=== PATIENT | female | born 2000 | race African-American/Black ===

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

== ENCOUNTER 2021-02-05 15:46 | Outpatient (REF) | payer OTHER, SELFPAY | END 2021-02-05 15:47 | disposition home or self-care (01) | LOC: HO.LAB 15:46 | PROVIDERS: Visit Provider Internal Medicine | DX: Z20.822 Contact with and (suspected) exposure to COVID-19 (principal) | CPT/HCPCS: C9803; U0003; U0005 ==

== ENCOUNTER 2021-12-10 14:57 | Outpatient (REF) | payer OTHER, SELFPAY ==
--- NOTE | ~2021-12-10 | MM_ITS ---
EXAMINATION: MM SCREENING DIGITAL BREAST TOMOSYNTHESIS, BILATERAL CLINICAL INFORMATION: Screening. Asymptomatic. The lifetime risk of breast cancer based on the Tyrer-Cuzick Model is 27.4%. Additional annual screening with breast MRI may be of benefit in women with a score of 20% or greater. COMPARISON: Mammography: None. TECHNIQUE: Digital breast tomosynthesis is performed in both the craniocaudal and mediolateral oblique views along with computer-aided detection (CAD). Synthesized 2D images are generated from the tomosynthesis. FINDINGS: There are scattered areas of fibroglandular density (ACR BI-RADS breast composition Category b). Right breast: No abnormal dominant mass or suspicious grouping of microcalcifications identified. Left breast: About the deep upper outer aspect of the left breast, there is some asymmetric parenchyma, for which spot compression film and ultrasound evaluation is recommended. MM/MM tomosynthesis screening BI IMPRESSION: Asymmetric density deep superior lateral aspect of the left breast for further evaluation. ASSESSMENT: BI-RADS 0: Incomplete - Need Additional Imaging Evaluation RECOMMENDATION: 1. Additional views of the left breast. 2. Targeted ultrasound if warranted after review of the additional views. 3. Radiology department staff will contact the patient for additional imaging. This patient's information was entered into a reminder system with a target due date for their next mammogram.
== END 2021-12-10 14:58 | disposition home or self-care (01) ==
LOC: HO.MAMMO 14:57
PROVIDERS: PCP Pediatrics; Visit Provider Pediatrics
DX: Z12.31 Encounter for screening mammogram for malignant neoplasm of breast (principal)
CPT/HCPCS: 77063; 77067

== ENCOUNTER 2021-12-20 08:55 | Outpatient (REF) | payer OTHER, SELFPAY ==
--- NOTE | ~2021-12-20 | MM_ITS ---
EXAMINATION: MM DIAGNOSTIC DIGITAL BREAST TOMOSYNTHESIS, LEFT CLINICAL INFORMATION: Recall from baseline screening for parenchymal asymmetry upper outer left breast. 21-year-old with family history premenopausal breast cancer in mother diagnosed under age 30. TC score 27%. COMPARISON: Mammography: 12/10/2021 TECHNIQUE: Digital breast tomosynthesis is performed. 2D images are generated from the tomosynthesis. The following views are obtained: Spot CC x2, spot MLO. FINDINGS: There are scattered areas of fibroglandular density (ACR BI-RADS breast composition Category b). Additional views demonstrate fibroglandular tissue in the upper outer quadrant. There is no mass or architectural abnormality. Results are discussed with the patient at time of visit. Continued high risk screening and availability of genetic testing discussed. MM/MM tomosynthesis added views L IMPRESSION: No mammographic evidence of malignancy. ASSESSMENT: BI-RADS 1: Negative RECOMMENDATION: 1. Routine annual mammography screening. 2.. The lifetime risk of breast cancer based on the Tyrer-Cuzick Model is 27%. Additional annual adjunct screening with breast MRI may be of benefit in women with a risk score of 20% or greater. 3. Referral for genetic counseling/testing may also be of benefit. This patient's information was entered into a reminder system with a target due date for their next mammogram.
== END 2021-12-20 08:56 | disposition home or self-care (01) ==
LOC: HO.MAMMO 08:55
PROVIDERS: Visit Provider Pediatrics
DX: R92.8 Other abnormal and inconclusive findings on diagnostic imaging of breast (principal)
CPT/HCPCS: 77061; 77065

== ENCOUNTER 2022-12-26 10:38 | Outpatient (REF) | payer OTHER, SELFPAY ==
--- NOTE | ~2022-12-26 | MM_ITS ---
EXAMINATION: MM SCREENING DIGITAL BREAST TOMOSYNTHESIS, BILATERAL CLINICAL INFORMATION: Screening. Asymptomatic. The lifetime risk of breast cancer based on the Tyrer-Cuzick Model is 41%. Additional annual screening with breast MRI may be of benefit in women with a score of 20% or greater. COMPARISON: Mammography: 12/20/2021 and 12/10/2021 TECHNIQUE: Digital breast tomosynthesis is performed in both the craniocaudal and mediolateral oblique views along with computer-aided detection (CAD). Synthesized 2D images are generated from the tomosynthesis. FINDINGS: The breasts are heterogeneously dense, which may obscure small masses (ACR BI-RADS breast composition Category c). LEFT BREAST: There is a stable parenchymal pattern of the left breast. RIGHT BREAST: Within the anterior aspect of the right breast on craniocaudal projection there is a region of asymmetric density measuring approximately 2.7 x 1.2 cm in size. Spot compression view is recommended. MM/MM tomosynthesis screening BI IMPRESSION: Right breast density for further evaluation ASSESSMENT: BI-RADS 0: Incomplete - Need Additional Imaging Evaluation RECOMMENDATION: 1. Additional views of the right breast. 2. Targeted ultrasound if warranted after review of the additional views. 3. Radiology Department staff will contact the patient for additional imaging.
== END 2022-12-26 10:39 | disposition home or self-care (01) ==
LOC: HO.MAMMO 10:38
PROVIDERS: Visit Provider Pediatrics
DX: Z12.31 Encounter for screening mammogram for malignant neoplasm of breast (principal)
CPT/HCPCS: 77063; 77067

== ENCOUNTER → 2023-01-17 10:51 | Outpatient (BNVA) | payer OTHER, SELFPAY | PROVIDERS: PCP Pediatrics; Visit Provider Surgery | DX: R92.8 Other abnormal and inconclusive findings on diagnostic imaging of breast (principal); Z91.89 Other specified personal risk factors, not elsewhere classified | CPT/HCPCS: 99202 ==

== ENCOUNTER 2023-02-19 13:48 | Outpatient (REF) | payer OTHER, SELFPAY ==
--- NOTE | ~2023-02-19 | MM_ITS ---
EXAMINATION: MM DIAGNOSTIC DIGITAL BREAST TOMOSYNTHESIS, RIGHT CLINICAL INFORMATION: Recall from screening for question of parenchymal asymmetry right anterior breast. 22-year-old with family history premenopausal breast cancer, mother before age 30, maternal aunt. COMPARISON: Mammography: 12/26/2022, 12/20/2021, 12/10/2021 (baseline). TECHNIQUE: Digital breast tomosynthesis is performed. 2D images are generated from the tomosynthesis. The following views are obtained: Spot CC, standard ML. FINDINGS: There are scattered areas of fibroglandular density (ACR BI-RADS breast composition Category b). The additional views show scattered fibroglandular densities similar to prior exam. No developing density or interval mass or architectural abnormality. Results are discussed with the patient at time of visit. Patient has had recent genetic testing, results pending at follow-up appointment. MM/MM tomosynthesis added views R IMPRESSION: No mammographic evidence of malignancy. ASSESSMENT: BI-RADS 1: Negative RECOMMENDATION: -Routine annual mammography screening. -Additional adjunct screening with MR as clinical risk factors warrant. This patient's information was entered into a reminder system with a target due date for their next mammogram.
== END 2023-02-19 13:49 | disposition home or self-care (01) ==
LOC: HO.MAMMO 13:48
PROVIDERS: Visit Provider Surgery
DX: Z91.89 Other specified personal risk factors, not elsewhere classified (principal)
CPT/HCPCS: 77061; 77065

== ENCOUNTER → 2023-02-28 09:19 | Outpatient (BNVA) | payer OTHER, SELFPAY | PROVIDERS: PCP Pediatrics; Visit Provider Surgery | DX: Z91.89 Other specified personal risk factors, not elsewhere classified (principal) | CPT/HCPCS: 99212 ==

== ENCOUNTER 2023-11-18 08:32 | Outpatient (AMB) | payer OTHER, SELFPAY ==
[2023-11-18 09:26] VITALS: BP 118/72; PULSE 82; TEMP 36.6; O2SAT 98; BMI 30.8
--- NOTE | 2023-11-18 09:26 | MHC.OFFWIV ---
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 The patient is unaware of her most recent tetanus immunization does not believe that she was ever tested for tuberculosis. Additionally, the patient needs confirmation of antibodies for varicella and MMR. Patient has no physical complaints at this time. [facility] Family History Maternal Uncle Colon cancer Maternal Aunt Breast cancer, Onset Age: 49 Ovarian cancer Mother Breast cancer, Onset Age: 29 Paternal Grandfather Colon cancer Social History Alcohol intake: never Patient Tobacco Use Status: Never used Tobacco Female Reproductive History Menstrual Age of Menarche: 13 Review of Systems Const All systems reviewed & are unremarkable except as noted in HPI and below Reports no additional complaints Resp Reports no additional complaints GI Reports no additional complaints Reports no additional complaints Musc Reports no additional complaints Neuro Reports no additional complaints Psych Reports no additional complaints Physical Exam Vital Signs: Last Vital Signs Temp 97.8 F 11/18/23 09:26 Pulse 82 11/18/23 09:26 BP 118/72 11/18/23 09:26 Pulse Ox 98 11/18/23 09:26 Oxygen Delivery Method Room Air 11/18/23 09:26 BMI result Body Mass Index 30.8 Const General: cooperative, healthy appearing, comfortable and no acute distress Nutritional Appearance: average body habitus Orientation/consciousness: patient oriented x3 Limitations: no limitations Eyes General: appearance normal, both eyes and all related structures Resp Effort & Inspection: normal respiratory effort, able to speak in complete sentences and no audible wheezes Auscultation: clear to auscultation bilaterally Cardio Rate: regular rate Rhythm: regular rhythm Neuro General: patient oriented x3 Psych Appearance: grossly normal Mental Status: mental status grossly normal Insight: Good insight present (Psych) Judgement: Good judgement present (Psych) Assessment & Plan Assessment & Plan (1) Immunization due: Comment: Last Tdap unknown. Code(s): Z23 - Encounter for immunization Plan: Tdap immunization administered. Plan Titers for MMR, Varicella and T.spot will be initiated. Orders: Orders TDaP Immunization Today Z23 - Encounter for immunization MMR IgG Measles Mumps Rubella Today Varicella IgG Antibody Today Z23 - Encounter for immunization T Spot TB Today Z23 - Encounter for immunization Coding Level of Care Code New Pt Level 3 (09240) Diagnoses Immunization due Z23 Time Spent (min) 20
== END 2023-11-18 10:14 | disposition home or self-care (01) ==
PROVIDERS: PCP Pediatrics; Visit Provider Physician Assistant
DX: Z23 Encounter for immunization (principal)
CPT/HCPCS: 90471; 90715; 99203

== ENCOUNTER 2023-11-18 10:02 | Outpatient (REF) | payer OTHER, SELFPAY ==
[2023-11-20 21:48] LABS: TS Negative Control Passed; TS Panel A 1; TS Panel B 0; TS Positive Control Passed; TSpotTB Negative (Negative)
== END 2023-11-18 10:03 | disposition home or self-care (01) ==
LOC: HO.HMGCLDS 10:02
PROVIDERS: Visit Provider Physician Assistant
DX: Z11.1 Encounter for screening for respiratory tuberculosis (principal)
CPT/HCPCS: 36415; 86481

== ENCOUNTER 2023-11-19 11:17 | Outpatient (REF) | payer OTHER, SELFPAY ==
[2023-11-20 22:54] LABS: Rubella IgG Antibody 6.87 Index; Rubeola IgG (Measles) >300.00 AU/mL
== END 2023-11-19 11:18 | disposition home or self-care (01) ==
LOC: HO.HMGCLDS 11:17
PROVIDERS: Visit Provider Physician Assistant
DX: Z01.84 Encounter for antibody response examination (principal)
CPT/HCPCS: 36415; 86735; 86762; 86765; 86787

== ENCOUNTER 2023-12-04 12:52 | Outpatient (REF) | payer OTHER, SELFPAY ==
--- NOTE | ~2023-12-04 | MR_ITS ---
EXAMINATION: MR BREAST WITHOUT AND WITH CONTRAST, BILATERAL CLINICAL INFORMATION: 23-year-old for high-risk screening prior to 6 model 41%. Maternal breast cancer before age 30 and paternal aunt COMPARISON: Correlation to mammogram 12/26/2022 and 02/19/2023 TECHNIQUE: Imaging was performed with a dedicated breast coil. Prior to the administration of contrast, bilateral axial T1 and bilateral axial T2 weighted sequences were obtained. After the uneventful administration of?9 mL of Gadavist, dynamic contrast-enhanced VIBRANT series through the breasts in the axial plane were performed. Subtracted images were performed and reviewed. A delayed sagittal sequence through both breasts was acquired. Additionally, CAD post-processing, including maximum intensity projections, 3-D reconstructions and kinetic analysis, were performed an independent workstation and reviewed by the interpreting radiologist is a portion of this exam. FINDINGS: The patient's fibroglandular tissue demonstrates minimal background enhancement. LEFT BREAST: No suspicious masslike or non-masslike enhancement. No abnormal skin thickening or nipple retraction. No abnormal architectural distortion. Review of the T2 weighted images demonstrates no fibrocystic changes or dilated ducts. Review of kinetic images reveals no additional findings. RIGHT BREAST: No suspicious masslike or non-masslike enhancement. No abnormal skin thickening or nipple retraction. No abnormal architectural distortion. Review of the T2 weighted images demonstrates no fibrocystic changes or dilated ducts. Review of kinetic images reveals no additional findings. There is no suspicious internal mammary chain or axillary adenopathy. Limited views of the chest and abdomen are unremarkable. MR/MR breast BI wo/w con IMPRESSION: No MR specific evidence of malignancy. ASSESSMENT: LEFT BREAST: BI-RADS 1-Negative RIGHT BREAST: BI-RADS 1-Negative RECOMMENDATIONS: Routine mammographic imaging as per most recent study and MRI as per high-risk protocol.
[2023-12-04] MEDS: gadobutroL 10 ML VIAL IVPUSH (13:58)
== END 2023-12-04 12:53 | disposition home or self-care (01) ==
LOC: HO.MRI 12:52
PROVIDERS: PCP Pediatrics; Visit Provider Surgery
DX: Z91.89 Other specified personal risk factors, not elsewhere classified (principal)
CPT/HCPCS: 77049; A9585

== ENCOUNTER 2023-12-19 07:53 | Outpatient (AMB) | payer OTHER, SELFPAY ==
--- NOTE | 2023-12-19 08:03 | A.OFFPC_ITS ---
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 Is last menstrual period known: Yes Last menstrual period: 12/15/23 Allergies No Known Allergies Allergy (Verified 12/19/23 08:14) Medication List - Last Reconciled 12/19/23 by SHAYE Loving No Known Home Meds Tobacco use date assessed: 12/19/23 Dental Screening Dental Screen Date: 12/19/23 Did you have a dental visit in the last 12 months?: Yes Did you have a dental problem in the last 6 months where you did not have access to dental care?: No Was dental information given to patient?: Patient has dentist HPI HPI Comments History of Present Illness Details Patient is a 23-year-old female who I am meeting for the 1st time. Chantelle campos was seen in our walk-in clinic 3 weeks prior looking for immunizations for TB, T spot, MMR antibody, and varicella antibody. Patient has no significant past medical history. Patient is high risk breast cancer due to early-onset breast cancer for mother. Patient's last mammogram was 1 year prior, will order new mammogram. Patient has been followed by breast center, missed six-month follow-up with breast surgeon. Patient has been educated on the importance of self-breast exams. Patient has been educated to follow up immediately. Denies symptoms at this time Patient states she has second-degree relative with early-onset ovarian cancer. Would like referral to OBGYN, will provide. Patient denies any symptoms at this time [facility] Family History Maternal Uncle Colon cancer Maternal Aunt Breast cancer, Onset Age: 49 Ovarian cancer Mother Breast cancer, Onset Age: 29 Paternal Grandfather Colon cancer Social History Housing: House Alcohol intake: never Patient Tobacco Use Status: Never used Tobacco e-Cigarette/Vaping Use: Never Used Second Hand Smoke Exposure: Yes service: No Current occupational status: employed Current occupation: [employer] Current occupational exposures/hazards: Yes Cognitive needs: No Hearing needs: No Vision needs: No Female Reproductive History Menstrual Age of Menarche: 13 Date of last menstrual period: 12/15/23 Questionnaire PHQ-9 Over the last 2 weeks, how often have you been bothered by any of the following problems? 1. Little interest or pleasure in doing things: not at all 2. Feeling down, depressed, or hopeless: not at all 3. Trouble falling or staying asleep, or sleeping too much: not at all 4. Feeling tired or having little energy: not at all 5. Poor appetite or overeating: several days 6. Feeling bad about yourself - or that you are a failure or have let yourself or your family down: not at all 7. Trouble concentrating on things, such as reading the newspaper or watching television: not at all 8. Moving or speaking so slowly that other people could have noticed. Or the opposite - being so fidgety or restless that you have been moving around a lot more than usual: not at all 9. Thoughts that you would be better off or of hurting yourself in some way: not at all Total score: 1 Depression Screening Interpretation: Negative Depression Screening Done: Yes 60992 - PHQ-9 Billing: Yes Source: Developed by Drs. Segundo Quinones, Chapis Olea, Lalit Collado and colleagues, with an educational adrianna from [employer]. Thrive Questionnaire Date Thrive assessed: 12/19/23 I am a: Patient What is your living situation today?: I have a steady place to live Within the past 12 months, did the food you bought not last and you didn't have the money to get more?: Never true Within the past 12 months, did you worry whether your food would run out before you got money to buy more?: Never true Do you have trouble paying for medicines?: No Do you have trouble getting transportation to medical appointments?: No Do you have trouble paying your heating and electricity bill?: No Do you have trouble taking care of your child, family member or friend?: No Do you have trouble with day-to-day activities such as bathing, preparing meals, shopping, managing finances, etc.?: No Are you currently unemployed and looking for a job?: No Are you interested in more education?: No THRIVE Score: 0 AUDIT C Alcohol Use Questionnaire (AUDIT-C) 1. How often do you have a drink containing alcohol?: 2-4 times a month 2. How many drinks containing alcohol do you have on a typical day when you are drinking?: 1 or 2 3. How often do you have six or more drinks on one occasion?: Never Total Score: 2 CLIFTON-7 AMB Questionnaire CLIFTON-7 Date CLIFTON - 7 assessed: 12/19/23 Feeling nervous, anxious, or on edge: 0 = Not at all Not being able to stop or control worryin = Not at all Worrying too much about different things: 0 = Not at all Trouble relaxin = Not at all Being so restless that it is hard to sit still: 0 = Not at all Becoming easily annoyed or irritable: 0 = Not at all Feeling afraid as if something awful might happen: 0 = Not at all Total CLIFTON-7 score (0-4 normal; 5-9 mild; 10-14 moderate; 15-21 severe): 0 Source: Developed by Drs. Segundo Quinones, Chapis Olea, Lalit Collado and colleagues, with an educational adrianna from [employer]. CLIFTON-7 Assessment Billing CLIFTON-7 Assessment Tool: CLIFTON-7 Assessment 35179 Review of Systems Const Details: Constitutional : No Weight loss, No Fever, No Chills, No Fatigue, No Malaise ENT/Mouth : No sore throat, No Rhinorrhea Eyes: No Eye Pain, No Swelling, No Redness Cardiovascular : No Chest Pain, No SOB, No Dyspnea on Exertion, No Orthopnea, No Edema, No Palpitations Respiratory : No Cough, No Sputum, No Wheezing Gastrointestinal : No Nausea, No Vomiting, No Diarrhea, No Constipation, No abdominal Pain, No Hematochezia, No Melena Genitourinary : No Dysuria, No Urinary Frequency, No Hematuria, Musculoskeletal : No joint pain, No Myalgias, No Joint Swelling Skin : No Skin Lesions, No rash Neuro : No Weakness, No Numbness, No Dizziness, No Headache Psych : No Anxiety/Panic, No Depression Heme/Lymph: No Bruising, No Bleeding,No Lymphadenopathy Endocrine : No Polyuria, No Polydipsia All other systems reviewed and are negative Physical exam (Primary Care) Care Plan Goal for BP management: Vital signs reviewed stable. Tobacco/Smoking Status: Tobacco use Status Patient Tobacco Use Status Never used Tobacco 12/19/23 08:04 Depression Screening Interpretation: Negative Const Other: Appearance: Alert.? Oriented X3.? No acute distress.? Head: Normocephalic, atraumatic, no step-offs or deformities Neck: Normal inspection.? Neck supple.? CVS: Normal heart rate and rhythm.? Pulses normal.? Respiratory: No respiratory distress.? Breath sounds normal.? Neuro: Oriented X 3.? No motor deficit.? No sensory deficit. CN 2-12 intact Assessment and Plan Assessment & Plan (1) At high risk for breast cancer: Comment: Patient had mammogram 1 year prior. Patient missed 6 months recommended follow- up with breast surgeon. Patient has been educated she needs to make that appointment and follow-up as soon as she can. Code(s): Z91.89 - Other specified personal risk factors, not elsewhere classified Plan: Due for mammogram will order. Plan Take your medications as prescribed. If you were prescribed antibiotics today, it is important that you take your medication to their entirety, do not skip any doses, do not finish them early. Follow-up with your primary care provider this week. Return to the emergency department with new or worsening symptoms. Such as fevers, chills, chest pain, shortness of breath, nausea, vomiting, dizziness, headache, vision changes, lethargy In case of emergency call 911 Orders: Orders Complete Blood Count Auto Diff Today Z13.0 - Encounter for screening for diseases of the blood and blood-forming organs and certain disorders involving the immune mechanism Lipid Panel Today Z13.220 - Encounter for screening for lipoid disorders TSH reflex Free T4 Today Z13.29 - Encounter for screening for other suspected endocrine disorder UA CC w/rflx Micro + Cult Today Z13.89 - Encounter for screening for other disorder Vitamin D 25-OH (D2 and D3) Today Z13.21 - Encounter for screening for nutritional disorder Vitamin B6 Today Z13.21 - Encounter for screening for nutritional disorder Vitamin B12 Today Z13.21 - Encounter for screening for nutritional disorder MM tomosynthesis screening BI Today Z12.31 - Encounter for screening mammogram for malignant neoplasm of breast, Z91.89 - Other specified personal risk factors, not elsewhere classified Comprehensive Met. Panel Today Z91.89 - Other specified personal risk factors, not elsewhere classified Referrals ENTERTAINMENT USHER Referral Z12.4 - Encounter for screening for malignant neoplasm of cervix, Z80.41 - Family history of malignant neoplasm of ovary Coding Level of Care Code Est Pt Level 3 (07496) Diagnoses At high risk for breast cancer Z91.89 Additional Codes CLIFTON-7 Assessment Billing - CLIFTON-7 Assessment Tool: CLIFTON-7 Assessment 88191 ([id number]) Time Spent (min) 21
[2023-12-19 08:04] VITALS: BP 126/72; PULSE 79; O2SAT 98; BMI 31.3
== END 2023-12-19 11:07 | disposition home or self-care (01) ==
PROVIDERS: PCP Pediatrics; Visit Provider Nurse Practitioner Primary Care
DX: Z91.89 Other specified personal risk factors, not elsewhere classified (principal)
CPT/HCPCS: 99213

== ENCOUNTER 2023-12-19 08:30 | Outpatient (REF) | payer OTHER, SELFPAY ==
[2023-12-19 10:26] LABS: MANUAL DIFF FLAG NO
[2023-12-19 10:50] LABS: Basophils Percent Auto 0.3 % (0-2); Eosinophils Percent Auto 0.6 % (0-4); Hematocrit 39.7 % (37.0-47.0); Hemoglobin 12.7 g/dl (12.0-16.0); Imm Gran Abs Auto 0.02 X10*3/uL (0.00-0.03); Imm Gran Pct Auto 0.3 % (0.0-0.4); Lymphocytes Absolute Auto 1.6 X10*3/uL (1.2-4.9); Lymphocytes Percent Auto 23.8 % (20-40); Mean Corpuscular Volume 84.5 fL (80.0-98.0); Mean Platelet Volume 10.3 fL (9.4-12.3); Monocytes Absolute Auto 0.6 X10*3/uL (0.1-1.2); Neutrophils Absolute Auto 4.6 x10*3/uL (2.0-8.3); Platelet Count 285 X10*3/uL (160-400); Red Cell Distribution Width 12.8 % (11.0-16.0); White Blood Count 6.8 X10*3/uL (4.8-10.8)
[2023-12-19 11:08] LABS: Appearance Urine Clear; Color Urine Yellow; Glucose Urine UA Negative (Negative); Leukocyte Esterase Urine Trace (Negative); Nitrite Urine Negative (Negative); PH 6.5 (5.0-9.0); Specific Gravity - Urine 1.025 (1.005-1.025); UMIC TRIGGER UACC YES; Urine Blood Negative (Negative); Urine Ketones Negative (Negative); Urine Protein Negative (Neg-Trace)
[2023-12-19 11:12] LABS: Alanine Aminotransferase 11 U/L (0-31); Albumin Level 3.9 g/dL (3.5-5.0); Alkaline Phosphatase 69 U/L (39-117); Anion Gap 11 (12-20); Aspartate Amino Transferase 17 U/L (5-31); Bilirubin Total 0.4 mg/dL (0.0-1.0); Blood Urea Nitrogen 12 mg/dL (9-16); Calcium 9.3 mg/dL (8.4-10.2); Carbon Dioxide 25 mmol/L (22-29); Chloride 109 mmol/L (96-108); Cholesterol 133 mg/dL (<200); Estimated Glomerular Filt Rate > 60; Glucose Random 89 mg/dL (60-115); HDL Cholesterol 57 mg/dL (>40); LDL Cholesterol Calculated 66 mg/dL (<100); Potassium 4.5 mmol/L (3.3-5.1); Sodium 140 mmol/L (135-145); Total Protein 7.4 g/dL (6.5-8.0); Triglycerides 50 mg/dL (<150)
[2023-12-19 11:15] LABS: Bacteria Urine 1+ (None Seen); Hyaline Casts Urine 0-2 /LPF (0-2); RBC Urine 0-2 /HPF (0-2); Squamous Epithelial Cell Urine 0-2 /HPF (0-2); UACC Culture Trigger YES; WBC Urine 21-50 /HPF (0-5)
[2023-12-19 11:25] LABS: Vitamin B12 338 pg/mL (200-900)
[2023-12-19 11:29] LABS: TSH reflex Free T4 0.99 uIU/mL (0.32-4.0)
[2023-12-23 13:20] LABS: Vitamin D 25-OH, D2 <4 ng/mL; Vitamin D 25-OH, D3 7 ng/mL; Vitamin D 25-OH, Total 7 ng/mL (30-100)
[2023-12-24 11:43] LABS: Vitamin B6 3.9 ng/mL (2.1-21.7)
== END 2023-12-19 08:31 | disposition home or self-care (01) ==
LOC: HO.HMGCLDS 08:30
PROVIDERS: PCP Nurse Practitioner Primary Care; Visit Provider Nurse Practitioner Primary Care
DX: Z13.21 Encounter for screening for nutritional disorder (principal); Z13.220 Encounter for screening for lipoid disorders; Z13.0 Encounter for screening for diseases of the blood and blood-forming organs and certain disorders involving the immune mechanism; Z13.29 Encounter for screening for other suspected endocrine disorder; Z91.89 Other specified personal risk factors, not elsewhere classified; Z13.89 Encounter for screening for other disorder
CPT/HCPCS: 36415; 80053; 80061; 81001; 81003; 82306; 82607; 84207; 84443; 85025; 87086; 87088; 87186

== ENCOUNTER 2024-01-23 09:44 | Outpatient (AMB) | payer OTHER, SELFPAY ==
--- NOTE | 2024-01-23 09:52 | MHC.OFFVIS ---
Vital Signs 01/23/24 09:54 Height 5 ft 6 in Weight 192 lb BMI 31.0 BP 134/78 Blood Pressure Location Lt brachial Position Sitting Pulse 77 Intake Visit Reasons: Breast exam, MRI results Intake Note: Patient is seen in office for MRI results, breast exam. Pt c/o: denies any concerns Wood Handler Required: No Accompanied by: Self / Same As Patient Allergies No Known Allergies Allergy (Verified 01/23/24 09:54) Medication List - Last Reconciled 01/23/24 by Hugh Serrano MD cholecalciferol (vitamin D3) 50,000 units PO QWEEK 3 months cholecalciferol (vitamin D3) 50 mcg PO DAILY HPI Comments Details: 23-year-old female patient returning for high risk breast cancer screening. She was determined to be at high risk for breast cancer due to a strong family history of breast cancer and colon cancer. Her calculated Tyrer-Cuzick remaining lifetime risk of breast cancer was determined to be 41% placing her at high risk for breast cancer. A mammogram dated 12/26/2022 revealed a 2.7 x 1.2 cm asymmetric density in the right breast. Left breast revealed a stable parenchymal pattern. Additional views on 02/19/2023 revealed no suspicious findings with no mammographic evidence of malignancy (BI-RADS 1). Genetic testing performed on 01/17/2023 revealed no clinically significant mutations. No variance of uncertain significance were identified as well. Her breast cancer risk score for remaining lifetime risk was calculated at 36 %. Menarche was at the age of 13; she has G0. Breast MRI performed on 12/04/2023 revealed no MR specific evidence of malignancy (BI-RADS 1 bilaterally). She is now due for an annual mammogram as recommended from the previous study. She feels well and denies any ongoing breast symptoms at this time. [facility] Medical History Vitamin D deficiency Family History Maternal Uncle Colon cancer Maternal Aunt Breast cancer, Onset Age: 49 Ovarian cancer Mother Breast cancer, Onset Age: 29 Paternal Grandfather Colon cancer Social History Housing: House Alcohol intake: never Patient Tobacco Use Status: Never used Tobacco e-Cigarette/Vaping Use: Never Used Second Hand Smoke Exposure: Yes service: No Current occupational status: employed Current occupation: [email or web address] Current occupational exposures/hazards: Yes Cognitive needs: No Hearing needs: No Vision needs: No Female Reproductive History Menstrual Age of Menarche: 13 Review of Systems Const All systems reviewed & are unremarkable except as noted in HPI and below Denies chills, Denies fever(s), Denies headache(s), Denies poor appetite and Denies weakness ENT Denies headache(s) Card Denies chest pain, Denies irregular heart rhythm, Denies palpitations and Denies dyspnea Resp Denies cough, Denies excessive phlegm production and Denies dyspnea GI Denies abdominal pain, Denies bloating, Denies change in bowel habits, Denies constipation, Denies heartburn, Denies diarrhea, Denies nausea and Denies vomiting Denies urinary frequency Musc Denies back pain, Denies muscle weakness and Denies numbness Skin/Breast Denies changing lesions and Denies unusual bruising Neuro Denies headache(s), Denies numbness, Denies paresthesias and Denies weakness Psych Denies anxiety and Denies depression Endo Denies palpitations Ryder/Lymph Denies lymphadenopathy Physical Exam Const General: no acute distress and well developed Chest Other: Left breast: No skin change, no nipple retraction, no nipple discharge, no palpable mass, no enlarged lymph nodes. Right breast: No skin change, no nipple retraction, no nipple discharge, no palpable mass, no enlarged lymph nodes Resp Effort & Inspection: normal respiratory effort Skin General skin exam: no rashes or lesions noted Extrem General: Yes no clubbing, cyanosis or edema Assessment & Plan Assessment & Plan (1) At high risk for breast cancer: Comment: Patient had mammogram 1 year prior. Patient missed 6 months recommended follow-up with breast surgeon. Patient has been educated she needs to make that appointment and follow-up as soon as she can. Code(s): Z91.89 - Other specified personal risk factors, not elsewhere classified Category: Medical Plan 23-year-old female patient determined to be at high risk for breast cancer due to a strong family history of breast and colon cancer. Genetic testing was negative for any genetic mutations of clinical significance or variance of unknown significance. Her most recent MRI revealed no suspicious findings in either breast (BI-RADS 1). She is now due for follow-up mammogram and an order has been placed. I recommended follow-up examination in 6 months' time, sooner p.r.n.. Orders: Orders MM diagnostic mammo BI Today Z91.89 - Other specified personal risk factors, not elsewhere classified Coding Level of Care Code Est Pt Level 3 (57597) Diagnoses At high risk for breast cancer Z91.89
[2024-01-23 09:54] VITALS: BP 134/78; PULSE 77; BMI 31.0
== END 2024-01-23 10:04 | disposition home or self-care (01) ==
PROVIDERS: PCP Nurse Practitioner Primary Care; Visit Provider Surgery
DX: Z80.3 Family history of malignant neoplasm of breast (principal); Z91.89 Other specified personal risk factors, not elsewhere classified
CPT/HCPCS: 99213

== ENCOUNTER → 2024-01-23 09:44 | Outpatient (BNVA) | payer OTHER, SELFPAY | PROVIDERS: PCP Nurse Practitioner Primary Care; Visit Provider Surgery | DX: Z91.89 Other specified personal risk factors, not elsewhere classified (principal); Z80.3 Family history of malignant neoplasm of breast; Z80.0 Family history of malignant neoplasm of digestive organs | CPT/HCPCS: 99212 ==

== ENCOUNTER 2024-03-18 09:25 | Outpatient (REF) | payer OTHER, SELFPAY ==
[2024-03-19 11:38] LABS: Bacterial Vaginosis PCR NEGATIVE (Negative); Candida Group PCR DETECTED (Not Detect); Candida glab krusei PCR NOT DETECTED (Not Detect); Trichomonas vaginalis PCR NOT DETECTED (Not Detect)
[2024-03-19 13:46] LABS: CT PCR NOT DETECTED (Not Detect.); NG PCR NOT DETECTED (Not Detect.)
== END 2024-03-18 09:26 | disposition home or self-care (01) ==
LOC: HO.LAB 09:25
PROVIDERS: PCP Nurse Practitioner Primary Care; Visit Provider Advanced Practice Midwife
DX: Z01.419 Encounter for gynecological examination (general) (routine) without abnormal findings (principal); N89.8 Other specified noninflammatory disorders of vagina; Z80.3 Family history of malignant neoplasm of breast; Z11.3 Encounter for screening for infections with a predominantly sexual mode of transmission; Z91.89 Other specified personal risk factors, not elsewhere classified
CPT/HCPCS: 0352U; 36415; 87491; 87591; 87625; 88175; 99385

== ENCOUNTER 2024-03-18 09:25 | Outpatient (AMB) | payer OTHER, SELFPAY ==
[2024-03-18 09:33] VITALS: BP 110/60; BMI 31.5
--- NOTE | 2024-03-18 09:33 | A.OFFVIS_ITS ---
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 Retail Pharmacy Merchandiser Required: No Retail Pharmacy Merchandiser Services: Retail Pharmacy Merchandiser Present Information Interpreted: clinical only Fine Arts Packer: Fine Arts Packer Present Allergies No Known Allergies Allergy (Verified 03/18/24 09:34) Medication List - Last Reconciled 03/18/24 by Hilary Plascencia CNM cholecalciferol (vitamin D3) 50,000 units PO QWEEK 3 months cholecalciferol (vitamin D3) 50 mcg PO DAILY Is last menstrual period known: Yes Last menstrual period: 02/27/24 Do you need a note to return to daycare/school/sports/work: No HPI HPI 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 She is a little bit nervous. She is 23 years old she is sexually active for the last 6 years with her 1 partner and she believes that they are monogamous. 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 She has a very strong family history of breast cancer in fact her mom of breast cancer when she was 13 and she has other friend members with cancer and she has been referred for the BRCA testing and it was done but she has a lifetime risk of 36% according to the most recent no in consultation with Dr. Serrano and she has been getting regular screening mammograms that started early because of her mom's and other family members early history. [facility] Medical History Vitamin D deficiency Family History Maternal Uncle Colon cancer Maternal Aunt Breast cancer, Onset Age: 49 Ovarian cancer Mother Breast cancer, Onset Age: 29 Paternal Grandfather Colon cancer Social History Housing: House Alcohol intake: never Patient Tobacco Use Status: Never used Tobacco e-Cigarette/Vaping Use: Never Used Second Hand Smoke Exposure: Yes service: No Current occupational status: employed Current occupation: [employer] Current occupational exposures/hazards: Yes Cognitive needs: No Hearing needs: No Vision needs: No Female Reproductive History Menstrual Age of Menarche: 13 Duration of menses: 3-5 days Date of last menstrual period: 02/27/24 control method: condoms Total pregnancies: 0 History of abnormal pap smear: No (no previous pap) Physical Exam Vital Signs: Last Vital Signs BP 110/60 03/18/24 09:33 BMI result Body Mass Index 31.5 Const General: healthy appearing, comfortable, no acute distress, well developed and alert Nutritional Appearance: average body habitus Orientation/consciousness: patient oriented x3 Limitations: no limitations HEENT Head: Yes normocephalic Neck Neck: Yes normal visual inspection Chest Chest palpation & inspection: normal inspection of the chest Breast/axilla inspection: normal inspection of the breasts and normal inspection of the axillae Breast/axilla palpation: normal palpation of the breasts and normal palpation of the axillae Resp Effort & Inspection: normal respiratory effort GI Inspection: Yes normal to inspection, No Abdominal wall edema and No distended Palpation (GI): Soft to palpation and nontender Other: External exam within normal limits there were shallow ulcerated dear moved areas on labia that patient is very aware that she scraped well shaving this morning. 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 Good tone with Kegel adnexa nontender not enlarged. General: Yes bladder normal to palpation External Female Exam: normal external appearance and normal appearance of the urethra Speculum Exam - Vagina: normal appearance of the vagina, normal palpation and normal vaginal discharge Speculum Exam - Cervix: normal appearance of the cervix, normal palpation and nontender Bimanual exam- vagina & uterus: normal bimanual exam, normal palpation, uterine size normal, bladder normal to palpation, consistency normal, normal palpation, uterine mobility normal, uterine shape normal, No Cervical tenderness present, non-tender and no cervical motion tenderness Bimanual Exam- Adnexa, other: normal adnexae, no masses, normal and No adnexal tenderness Neuro General: patient oriented x3 Results Reviewed Results Reviewed: breast cancer genetic screening and visits w Dr Serrano...... Assessment & Plan Assessment & Plan (1) At high risk for breast cancer: Comment: Patient had mammogram 1 year prior. Patient missed 6 months recommended follow- up with breast surgeon. Patient has been educated she needs to make that appointment and follow-up as soon as she can. 03/18/[address] patient had [address] with Dr[address] Serrano in January of 2024-mo'b. Code(s): Z91.89 - Other specified personal risk factors, not elsewhere classified Category: Medical (2) Well woman exam with routine gynecological exam: Code(s): Z01.419 - Encounter for gynecological examination (general) (routine) without abnormal findings Category: Medical (3) control counseling: Code(s): Z30.09 - Encounter for other general counseling and advice on contraception Category: Medical (4) Cervical cancer screening: Comment: Patient believes She got whole HPV series at [facility] Code(s): Z12.4 - Encounter for screening for malignant neoplasm of cervix Category: Medical (5) Encounter for screening examination for sexually transmitted disease: Code(s): Z11.3 - Encounter for screening for infections with a predominantly sexual mode of transmission Category: Medical Plan -----Discussed in this visit the following: healthy balanced diet, regular and consistent exercise, getting recommended health screens, doing the best she can for her particular health concerns, kegel exercises, pap smear screening and followup recommendations, mammography screening and SBE, normal changes in cycles in her life stage--- .----I reviewed available options for Control Methods and their associated side effect profiles. In particular, we discussed the method most of interest to her. For now she wants stick with condoms I recommend that she add fertility awareness and cycle awareness to her repertoire of as a tool for life and for making sure she does not have a baby until she wishes to have 1.. ---reviewed her extensive family history and the challenges that places but I applauded her for following through and screening as appropriate. -------discussed the challenges of having been obese and that if she were to start gaining the weight again she would probably rebound quickly and so applauded her efforts and recommend she do her best to maintain her healthier status for life and perhaps add muscle or strength training to her repertoire. Safer sex reviewed if she has any questions of fidelity as well. She will be meeting her new primary soon. Orders: Orders CT NG by PCR Today N89.8 - Other specified noninflammatory disorders of vagina, Z11.3 - Encounter for screening for infections with a predominantly sexual mode of transmission Bacterial Vaginosis Panel Today N89.8 - Other specified noninflammatory disorders of vagina Hepatitis C Antibody Today Z01.419 - Encounter for gynecological examination (general) (routine) without abnormal findings, Z11.3 - Encounter for screening for infections with a predominantly sexual mode of transmission, Z12.4 - Encounter for screening for malignant neoplasm of cervix, Z30.09 - Encounter for other general counseling and advice on contraception, Z91.89 - Other specified personal risk factors, not elsewhere classified HIV Ab/Ag Today Z01.419 - Encounter for gynecological examination (general) (routine) without abnormal findings, Z11.3 - Encounter for screening for infections with a predominantly sexual mode of transmission, Z12.4 - Encounter for screening for malignant neoplasm of cervix, Z30.09 - Encounter for other general counseling and advice on contraception, Z91.89 - Other specified personal risk factors, not elsewhere classified Syphilis Screen Today Z01.419 - Encounter for gynecological examination (general) (routine) without abnormal findings, Z11.3 - Encounter for screening for infections with a predominantly sexual mode of transmission, Z12.4 - Encounter for screening for malignant neoplasm of cervix, Z30.09 - Encounter for other general counseling and advice on contraception, Z91.89 - Other specified personal risk factors, not elsewhere classified Pap Smear Today Z01.419 - Encounter for gynecological examination (general) (routine) without abnormal findings Hepatitis B Surface Antigen Today Z01.419 - Encounter for gynecological examination (general) (routine) without abnormal findings, Z11.3 - Encounter for screening for infections with a predominantly sexual mode of transmission, Z12.4 - Encounter for screening for malignant neoplasm of cervix, Z30.09 - Encounter for other general counseling and advice on contraception, Z91.89 - Other specified personal risk factors, not elsewhere classified Coding Level of Care Code New Pt Prev Care 18-39yr([id number] Diagnoses At high risk for breast cancer Z91.89 Well woman exam with routine gynecological exam Z01.419 control counseling Z30.09 Cervical cancer screening Z12.4 Encounter for screening examination for sexually transmitted disease Z11.3
== END 2024-03-18 10:22 | disposition home or self-care (01) ==
LOC: HO.HWSM 09:25
PROVIDERS: PCP Nurse Practitioner Primary Care; Visit Provider Advanced Practice Midwife
DX: Z01.419 Encounter for gynecological examination (general) (routine) without abnormal findings (principal); Z91.89 Other specified personal risk factors, not elsewhere classified; Z30.09 Encounter for other general counseling and advice on contraception; Z12.4 Encounter for screening for malignant neoplasm of cervix; Z11.3 Encounter for screening for infections with a predominantly sexual mode of transmission
CPT/HCPCS: 99385

== ENCOUNTER 2024-04-09 13:24 | Outpatient (REF) | payer OTHER, SELFPAY ==
--- NOTE | ~2024-04-09 | MM_ITS ---
EXAMINATION: MM SCREENING DIGITAL BREAST TOMOSYNTHESIS, BILATERAL CLINICAL INFORMATION: Screening. Asymptomatic. The patient has a significant family history of premenopausal breast cancer with her mother having been diagnosed before age 30 and breast cancer in and aunt. The patient had a recent bilateral breast MRI in November 2023 which was reported as normal. COMPARISON: Mammography: This study is compared with prior mammograms exams dating back to 2021. The November 2023 breast MRI as also been reviewed. TECHNIQUE: Digital breast tomosynthesis is performed in both the craniocaudal and mediolateral oblique views along with computer-aided detection (CAD). Synthesized 2D images are generated from the tomosynthesis. FINDINGS: The breasts are heterogeneously dense, which may obscure small masses (ACR BI-RADS breast composition Category c). In the upper outer quadrant of the left breast, there is an incompletely circumscribed, oval, approximately 4 cm focal asymmetry. This warrants additional mammographic and targeted sonographic imaging. There is no abnormality of the few axillary lymph nodes included in the MLO view of the left breast. In the right breast, there are no significant masses, abnormal calcifications, or other abnormalities. MM/MM tomosynthesis screening BI IMPRESSION: Focal asymmetry of the upper outer quadrant of the left breast warrants additional mammographic and targeted sonographic imaging. In the short interval since the normal breast MRI in November 2023, the differential diagnosis of this finding includes a cyst/cysts. In the setting of a patient who is high risk for breast cancer, interval development of a neoplastic process cannot be ruled out despite the breast MRI results from 6 months ago. The presence of any mass not sales representative adding machines of a simple cyst in this location should prompt sonography of the left axilla at the time of the diagnostic imaging visit. Given the family history of breast cancer, if the patient has not already seen a breast surgeon or oncologist for formal breast cancer risk assessment, genetic counseling and the offer genetic testing, this is strongly recommended. No mammographic signs of malignancy right breast. ASSESSMENT: BI-RADS BI-RADS 0 - Incomplete: Needs additional Imaging. RECOMMENDATION: 1. Additional views of the left breast. 2. Targeted ultrasound of the upper outer quadrant of the left breast is indicated. The presence of any mass not sales representative adding machines of a simple cyst in the upper outer quadrant of the left breast should prompt sonography of the left axilla at the time of the diagnostic imaging visit. 3. Radiology department staff will contact the patient for additional imaging. Additional Imaging required This examination should not preclude the clinical evaluation of a suspicious palpable abnormality. This patient's information was entered into a reminder system with a target due date for their next mammogram.
== END 2024-04-09 13:25 | disposition home or self-care (01) ==
LOC: HO.MAMMO 13:24
PROVIDERS: PCP Nurse Practitioner Primary Care; Visit Provider Nurse Practitioner Primary Care
DX: Z12.31 Encounter for screening mammogram for malignant neoplasm of breast (principal); Z91.89 Other specified personal risk factors, not elsewhere classified
CPT/HCPCS: 77063; 77067

== ENCOUNTER → 2024-04-09 13:30 | Outpatient (BNV) | payer OTHER, SELFPAY | PROVIDERS: PCP Nurse Practitioner Primary Care; Visit Provider Radiology Diagnostic Radiology | DX: Z12.31 Encounter for screening mammogram for malignant neoplasm of breast (principal) | CPT/HCPCS: 77063; 77067 ==

== ENCOUNTER 2024-05-12 14:58 | Outpatient (REF) | payer OTHER, SELFPAY ==
--- NOTE | ~2024-05-12 | US_ITS ---
EXAMINATION: MM DIAGNOSTIC DIGITAL BREAST TOMOSYNTHESIS, LEFT US BREAST LIMITED, LEFT MAMMOGRAPHY: CLINICAL INFORMATION: 23-year-old female, strong family history of breast CA (mother at age 29), called back from screening exam for approximately 4 cm focal asymmetry upper outer quadrant left breast. COMPARISON: Mammography: 04/09/2024, 01/22/2023, 12/26/2022, 12/10/2021. MRI breasts 12/04/2023, benign. TECHNIQUE: Digital left breast tomosynthesis was performed in following views: Full field 3-D left medial lateral view, as well as 3-D spot compression left CC view x1 and left MLO view x2. Computer-aided diagnosis was used for this study. This was followed by targeted left breast ultrasound. FINDINGS: The breasts are heterogeneously dense, which may obscure small masses (ACR BI-RADS breast composition Category c). Diagnostic views demonstrate partial persistence of the masslike asymmetry in the upper outer quadrant of the left breast, however there are is interspersed fat and this appears to represent prominent glandular tissue as opposed to a discrete mass or cyst. This will be evaluated with ultrasound. ULTRASOUND: CLINICAL INFORMATION: As above. COMPARISON: Noncontributory. TECHNIQUE: Targeted sonographic evaluation left breast was performed using a high frequency linear transducer. Attention is given to the upper outer quadrant, in the region of mammographic concern. Selected archived documentation. FINDINGS: LEFT BREAST: -In the upper outer quadrant, correlating with the mammographic finding, there is dense normal fibroglandular tissue without evidence of solid mass, abnormal shadowing, architectural distortion, or edema within the soft tissue planes. Incidentally noted is a small simple cyst measuring 3 mm at the 12:00 axis, 6 cm from the nipple. This is benign. US/US breast LT limited mamm only IMPRESSION: There are no findings suspicious for malignancy in the left breast. There are benign findings as discussed, with no evidence of suspicious abnormality in the upper outer quadrant. Recommend resuming routine annual screening mammography. OVERALL ASSESSMENT: Mammography: BI-RADS 2 - Benign Findings Ultrasound: BI-RADS 2 - Benign Findings RECOMMENDATION: 1 year F/U This patient's information was entered into a reminder system with a target due date for their next mammogram. Electronically signed by: Nixon Rene MD 05/12/2024 04:10 PM EDT RP
== END 2024-05-12 14:59 | disposition home or self-care (01) ==
LOC: HO.MAMMO 14:58
PROVIDERS: PCP Advanced Practice Midwife; Visit Provider Advanced Practice Midwife
DX: N64.89 Other specified disorders of breast (principal)
CPT/HCPCS: 76642; 77061; 77065

== ENCOUNTER → 2024-05-12 15:00 | Outpatient (BNV) | payer OTHER, SELFPAY | PROVIDERS: PCP Advanced Practice Midwife; Visit Provider Radiology Diagnostic Radiology | DX: R92.8 Other abnormal and inconclusive findings on diagnostic imaging of breast (principal) | CPT/HCPCS: 76642; 77061; 77065 ==

== ENCOUNTER 2024-07-27 08:58 | Outpatient (AMB) | payer OTHER, SELFPAY ==
--- NOTE | 2024-07-27 09:08 | A.OFFVIS_ITS ---
Vital Signs 07/27/24 09:13 Height 5 ft 6 in Weight 213 lb 6 oz BMI 34.4 BP 128/86 Blood Pressure Location Lt brachial Position Sitting Pulse 79 Intake Visit Reasons: 6 mth Breast exam Intake Note: Patient is seen in office for 6 month follow up visit, breast exam. 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 She was determined to be at high risk for breast cancer due to a strong family history of breast cancer and colon cancer. Her calculated Tyrer-Cuzick remaining lifetime risk of breast cancer was determined to be 41% placing her at high risk for breast cancer. A mammogram dated 12/26/2022 revealed a 2.7 x 1.2 cm asymmetric density in the right breast. Left breast revealed a stable parenchymal pattern. Additional views on 02/19/2023 revealed no suspicious findings with no mammographic evidence of malignancy (BI-RADS 1). Genetic testing performed on 01/17/2023 revealed no clinically significant mutations. No variance of uncertain significance were identified as well. Her breast cancer risk score for remaining lifetime risk was calculated at 36 %. Menarche was at the age of 13; she has G0. Breast MRI performed on 12/04/2023 revealed no MR specific evidence of malignancy (BI-RADS 1 bilaterally). Mammogram performed on 04/09/2024 with follow-up images and ultrasound on 05/12/2024 revealed no mammographic or sonographic evidence of malignancy (BI-RADS 2 mammogram, BI-RADS 2 ultrasound). She feels well and denies any ongoing breast symptoms at this time. [facility] Medical History Vitamin D deficiency Family History Maternal Uncle Colon cancer Maternal Aunt Breast cancer, Onset Age: 49 Ovarian cancer Mother Breast cancer, Onset Age: 29 Paternal Grandfather Colon cancer Social History Housing: House Alcohol intake: never Patient Tobacco Use Status: Never used Tobacco e-Cigarette/Vaping Use: Never Used Second Hand Smoke Exposure: Yes service: No Current occupational status: employed Current occupation: [employer] Current occupational exposures/hazards: Yes Cognitive needs: No Hearing needs: No Vision needs: No Female Reproductive History Menstrual Age of Menarche: 13 Review of Systems Const All systems reviewed & are unremarkable except as noted in HPI and below Denies chills, Denies fever(s), Denies headache(s), Denies poor appetite and Denies weakness ENT Denies headache(s) Card Denies chest pain, Denies irregular heart rhythm, Denies palpitations and Denies dyspnea Resp Denies cough, Denies excessive phlegm production and Denies dyspnea GI Denies abdominal pain, Denies bloating, Denies change in bowel habits, Denies constipation, Denies heartburn, Denies diarrhea, Denies nausea and Denies vomiting Denies urinary frequency Musc Denies back pain, Denies muscle weakness and Denies numbness Skin/Breast Denies changing lesions and Denies unusual bruising Neuro Denies headache(s), Denies numbness, Denies paresthesias and Denies weakness Psych Denies anxiety and Denies depression Endo Denies palpitations Ryder/Lymph Denies lymphadenopathy Physical Exam Const General: no acute distress and well developed Chest Other: Left breast: No skin change, no nipple retraction, no nipple discharge, no palpable mass, no enlarged lymph nodes. Right breast: No skin change, no nipple retraction, no nipple discharge, no palpable mass, no enlarged lymph nodes Resp Effort & Inspection: normal respiratory effort Skin General skin exam: no rashes or lesions noted Extrem General: Yes no clubbing, cyanosis or edema Assessment & Plan Assessment & Plan (1) At high risk for breast cancer: Comment: Patient had mammogram 1 year prior. Patient missed 6 months recommended follow- up with breast surgeon. Patient has been educated she needs to make that appointment and follow-up as soon as she can. 03/18/2024 patient had visit with Dr. Serrano in January of 2024-mo'b. Code(s): Z91.89 - Other specified personal risk factors, not elsewhere classified Category: Medical Plan 24-year-old female patient determined to be at high risk for breast cancer due to a strong family history of breast and colon cancer. Genetic testing was negative for any genetic mutations of clinical significance or variance of unknown significance. Breast MRI performed on 12/04/2023 revealed no MR specific evidence of malignancy (BI-RADS 1). Mammogram and ultrasound performed on 04/09 and 05/12/2024 revealed no mammographic evidence of malignancy (BI-RADS 2). Examination today revealed no suspicious findings in either breast. I recommended a follow-up examination in 6 months. She will be due for an annual breast MRI in November 2024. She is welcome to call sooner for any new concerns. Orders: Orders MR breast BI wo/w con 12/06/24 Z91.89 - Other specified personal risk factors, not elsewhere classified Coding Level of Care Code Est Pt Level 3 (30987) Complex EM visit Add On G2211 Diagnoses At high risk for breast cancer Z91.89
[2024-07-27 09:13] VITALS: BP 128/86; PULSE 79; BMI 34.4
== END 2024-07-27 09:23 | disposition home or self-care (01) ==
LOC: HO.HGS 08:58
PROVIDERS: PCP Nurse Practitioner Primary Care; Visit Provider Surgery
DX: Z91.89 Other specified personal risk factors, not elsewhere classified (principal)
CPT/HCPCS: 99213; G2211

== ENCOUNTER → 2024-07-27 08:58 | Outpatient (BNVA) | payer OTHER, SELFPAY | PROVIDERS: PCP Nurse Practitioner Primary Care; Visit Provider Surgery | DX: Z91.89 Other specified personal risk factors, not elsewhere classified (principal); Z80.3 Family history of malignant neoplasm of breast; Z80.0 Family history of malignant neoplasm of digestive organs | CPT/HCPCS: 99212 ==

== ENCOUNTER 2024-08-13 13:55 | Outpatient (AMB) | payer OTHER, SELFPAY ==
[2024-08-13 13:56] VITALS: BP 114/78; PULSE 76; O2SAT 99; BMI 34.4
--- NOTE | 2024-08-13 13:56 | A.OFFPC_ITS ---
Vital Signs 08/13/24 13:56 Height 5 ft 6 in Weight 213 lb BMI 34.4 BP 114/78 Blood Pressure Location Lt brachial Position Sitting Pulse 76 Pulse Source Pulse Oximeter Pulse Oximetry (%) 99 Oxygen Delivery Method Room Air Intake Visit Reasons: Follow up Transfer from [facility] Note: Pt is here today for a follow up visit to establish from [facility]. Allergies No Known Allergies Allergy (Verified 08/13/24 13:58) Tobacco use date assessed: 08/13/24 Dental Screening Dental Screen Date: 12/19/23 HPI HPI Comments History of Present Illness Details Patient is for physical [facility] Medical History (Updated 08/13/24 @ 14:35 by Courtney Li MD) Vitamin D deficiency Family History Maternal Uncle Colon cancer Maternal Aunt Breast cancer, Onset Age: 49 Ovarian cancer Mother Breast cancer, Onset Age: 29 Paternal Grandfather Colon cancer Social History (Updated 08/13/24 @ 14:14 by Courtney Li MD) Household Members Other:: single. 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 Housing: House Alcohol intake: never Patient Tobacco Use Status: Never used Tobacco e-Cigarette/Vaping Use: Never Used Second Hand Smoke Exposure: Yes service: No Current occupational status: employed Current occupation: [employer] Current occupational exposures/hazards: Yes Cognitive needs: No Hearing needs: No Vision needs: No Female Reproductive History Menstrual Age of Menarche: 13 Questionnaire Thrive Questionnaire Date Thrive assessed: 04/21/24 I am a: Patient What is your living situation today?: I have a steady place to live Within the past 12 months, did the food you bought not last and you didn't have the money to get more?: Never true Within the past 12 months, did you worry whether your food would run out before you got money to buy more?: Never true Do you have trouble paying for medicines?: No Do you have trouble getting transportation to medical appointments?: No Do you have trouble paying your heating and electricity bill?: No Do you have trouble taking care of your child, family member or friend?: No Do you have trouble with day-to-day activities such as bathing, preparing meals, shopping, managing finances, etc.?: No Are you currently unemployed and looking for a job?: No Are you interested in more education?: No Please select the resources that you would like help with: None Currently or been in a relationship where the following occur: No concerns reported THRIVE Score: 0 CLIFTON-7 AMB Questionnaire CLIFTON-7 Date CLIFTON - 7 assessed: 12/19/23 Source: Developed by Drs. Segundo Quinones, Chapis Olea, Lalit Collado and colleagues, with an educational adrianna from [employer]. Review of Systems Const All systems reviewed & are unremarkable except as noted in HPI and below Reports no additional complaints Eyes Reports no additional complaints ENT Reports no additional complaints Card Reports no additional complaints Resp Reports no additional complaints GI Reports no additional complaints Physical exam (Primary Care) Vital Signs: Last Vital Signs Pulse 76 08/13/24 13:56 BP 114/78 08/13/24 13:56 Pulse Ox 99 08/13/24 13:56 Oxygen Delivery Method Room Air 08/13/24 13:56 BMI result Body Mass Index 34.4 Tobacco/Smoking Status: Tobacco use Status Tobacco use date assessed 08/13/24 08/13/24 14:00 Patient Tobacco Use Status Never used Tobacco 08/13/24 14:00 e-Cigarette/Vaping Use Never Used 08/13/24 14:00 Thrive Assessment: Date of Thrive Assessment Date Thrive assessed 04/21/24 08/13/24 14:00 Currently or been in a relationship where the following occur: No concerns reported Const General: no acute distress HENMT Head: Yes normal to inspection Ears: hearing grossly normal bilaterally Face and sinus: Yes normal facial exam Throat: Yes posterior oropharynx normal Neck Neck: Yes no lymphadenopathy and Yes supple Resp Effort & Inspection: normal respiratory effort Auscultation: clear to auscultation bilaterally Cardio Rhythm: regular rhythm Heart sounds: S1 normal heart sound present and S2 normal heart sound present GI Inspection: Yes normal to inspection Palpation (GI): Soft to palpation Percussion: Yes normal to percussion Auscultation: normal bowel sounds Coding Level of Care Code Est Pt Prev Care 18-39y(83040) Diagnoses Cervical cancer screening Z12.4 At high risk for breast cancer Z91.89 Annual physical exam Z00.00 Assessment & Plan Assessment & Plan (1) Cervical cancer screening: Comment: Patient believes She got whole HPV series at [facility]; 03/18/2024 Pap appears to be negative with HPV co testing pending (it was not ordered). HPV cotesting was not done/ not indicated.) Code(s): Z12.4 - Encounter for screening for malignant neoplasm of cervix Category: Medical Plan: Established with respiratory assistant (2) At high risk for breast cancer: Comment: Negative genetic testing follow-up with surgeon 03/18/2024 patient had visit with Dr. Serrano Code(s): Z91.89 - Other specified personal risk factors, not elsewhere classified Category: Medical Plan: Follow-up with the surgeon (3) Annual physical exam: Code(s): Z00.00 - Encounter for general adult medical examination without abnormal findings Category: Medical Plan: Well-balanced diet regular physical activity discussed with the pt
== END 2024-08-13 14:37 | disposition home or self-care (01) ==
PROVIDERS: Visit Provider Internal Medicine
DX: Z12.4 Encounter for screening for malignant neoplasm of cervix (principal); Z91.89 Other specified personal risk factors, not elsewhere classified; Z00.00 Encounter for general adult medical examination without abnormal findings

== ENCOUNTER → 2024-08-13 13:55 | Outpatient (BNVA) | payer OTHER, SELFPAY | PROVIDERS: Visit Provider Internal Medicine | DX: Z00.00 Encounter for general adult medical examination without abnormal findings (principal); Z91.89 Other specified personal risk factors, not elsewhere classified; E55.9 Vitamin D deficiency, unspecified | CPT/HCPCS: 99395 ==

== ENCOUNTER 2024-08-24 10:35 | Outpatient (REF) | payer OTHER, SELFPAY ==
[2024-08-24 15:20] LABS: Influenza A PCR NEGATIVE (Negative); Influenza B PCR NEGATIVE (Negative); Resp Syncy Virus RNA Qual PCR NEGATIVE (Negative); SARS COV2 PCR INHOUSE NEGATIVE (Negative)
== END 2024-08-24 10:36 | disposition home or self-care (01) ==
LOC: HO.LNP 10:35
PROVIDERS: Visit Provider Physician Assistant
DX: J06.9 Acute upper respiratory infection, unspecified (principal)
CPT/HCPCS: 0241U; 87880; 99212

== ENCOUNTER 2024-08-24 10:35 | Outpatient (AMB) | payer OTHER, SELFPAY ==
--- NOTE | 2024-08-24 10:36 | MHC.OFFWIV ---
Intake Vital Signs 08/24/24 10:38 Height 5 ft 6 in Weight 220 lb BMI 35.5 BP 120/80 Blood Pressure Location Rt brachial Position Sitting Pulse 107 H Pulse Source Pulse Oximeter Temp 97.7 F Temp Source Oral Pulse Oximetry (%) 99 Oxygen Delivery Method Room Air Intake Visit Reasons: EP sore thorat, diarreah, vomiting, coughing Intake Note: Patient here for cough, diarrhea, nausea, vomiting and sore throat that has been present for about 4 days. Patient Tobacco Use Status: Never used Tobacco Allergies No Known Allergies Allergy (Verified 08/24/24 10:39) Do you need a note to return to daycare/school/sports/work: Yes HPI HPI Comments History of Present Illness Details This is a 24 year old female with no stated past medical history presenting for evaluation of a cough, sore throat and diarrhea that she has had since Friday. Patient states that she will wake up diaphoretic and with a headache and today she developed sinus congestion. Patient reports intermittent subjective fevers and chills. She denies having any otalgia, shortness for breath, nausea, vomiting, abdominal pain or dysuria. Patient has taken Tylenol only without relief of her symptoms. [facility] Medical History Vitamin D deficiency Family History Maternal Uncle Colon cancer Maternal Aunt Breast cancer, Onset Age: 49 Ovarian cancer Mother Breast cancer, Onset Age: 29 Paternal Grandfather Colon cancer Social History (Updated 08/13/24 @ 14:14 by Courtney Li MD) Household Members Other:: single. 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 Housing: House Alcohol intake: never Patient Tobacco Use Status: Never used Tobacco e-Cigarette/Vaping Use: Never Used Second Hand Smoke Exposure: Yes service: No Current occupational status: employed Current occupation: [employer] Current occupational exposures/hazards: Yes Cognitive needs: No Hearing needs: No Vision needs: No Female Reproductive History Menstrual Age of Menarche: 13 Review of Systems Const All systems reviewed & are unremarkable except as noted in HPI and below Reports chills and Reports fever(s) (subjective) Eyes Reports no additional complaints ENT Denies otalgia, Denies facial pain, Reports nasal congestion and Reports sore throat Card Reports no additional complaints and Denies dyspnea Resp Reports no additional complaints, Reports cough and Denies dyspnea GI Reports no additional complaints, Denies abdominal pain, Reports diarrhea, Denies nausea and Denies vomiting Reports no additional complaints and Denies dysuria Musc Reports no additional complaints Skin/Breast Reports system reviewed and no additional complaints, except as documented Neuro Reports no additional complaints Psych Reports no additional complaints Endo Reports no additional complaints Ryder/Lymph Reports no additional complaints Aller/Immun Reports no additional complaints Physical Exam Vital Signs: Last Vital Signs Temp 97.7 F 08/24/24 10:38 Pulse 107 H 08/24/24 10:38 BP 120/80 08/24/24 10:38 Pulse Ox 99 08/24/24 10:38 Oxygen Delivery Method Room Air 08/24/24 10:38 BMI result Body Mass Index 35.5 Patient is afebrile, heart rate 92 on re-evaluation. Const General: cooperative, comfortable, no acute distress, well developed, alert, awake and Physically active; No acute distress Nutritional Appearance: average body habitus Orientation/consciousness: patient oriented x3 Limitations: no limitations HEENT Head: Yes normal to inspection and Yes normocephalic Ears: hearing grossly normal bilaterally, external ears normal, TM's normal bilaterally and EAC's normal General nose exam: Normal external nose present Face and sinus: Yes normal facial exam Mouth: Normal oral and palatal mucosa present and moist mucous membranes Teeth and gingiva: dentition normal Throat: Yes posterior oropharynx normal (There is no edema, erythema or exudates of the posterior oropharynx) Eyes General: appearance normal, both eyes and all related structures Neck Lymphatic: no lymphadenopathy noted Resp Effort & Inspection: normal respiratory effort, able to speak in complete sentences, no audible wheezes, no cough and no respiratory distress Auscultation: clear to auscultation bilaterally Cardio Rate: regular rate Rhythm: regular rhythm Neuro General: patient oriented x3 Psych Appearance: grossly normal Mental Status: mental status grossly normal Insight: Good insight present (Psych) Judgement: Good judgement present (Psych) Assessment & Plan Assessment & Plan (1) Acute upper respiratory infection: Comment: SARS testing is initiated and pending. Code(s): J06.9 - Acute upper respiratory infection, unspecified Plan: Tylenol or ibuprofen as needed for discomfort, increase clear fluids daily, restless tolerated. Follow up with primary care physician within 7-10 days if symptoms have not improved. Orders: Orders SARS-CoV2/FLU/RSV Today J06.9 - Acute upper respiratory infection, unspecified Coding Level of Care Code Est Pt Level 3 (68980) Diagnoses Acute upper respiratory infection J06.9 Time Spent (min) 20
[2024-08-24 10:38] VITALS: BP 120/80; PULSE 107; TEMP 36.5; O2SAT 99; BMI 35.5
== END 2024-08-24 11:18 | disposition home or self-care (01) ==
PROVIDERS: Visit Provider Physician Assistant
DX: Z13.9 Encounter for screening, unspecified (principal); J06.9 Acute upper respiratory infection, unspecified

== ENCOUNTER 2025-03-31 10:23 | Outpatient (AMB) | payer OTHER, SELFPAY ==
[2025-03-31 10:37] VITALS: BP 128/78; PULSE 88; RESP 18; TEMP 36.9; O2SAT 98; BMI 36.0
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
--- OUTSIDE RECORDS SUMMARY | 2025-03-31 11:03 | XMS_ITS | Encounter Summary ---
Author Organization [facility] Address [address] [place] [phone] Phone Care Team Providers Care Arc Welder Name Role Phone Candida Duncan MD Primary Care Provider [phone] Encounter Details Date Type Department Care Team (Late st Contact Info) Description 05/08/2017 Conversion Encounter [facility] [place] [address] [place] [address] Social History Tobacco Use Types Packs/Day Years Used Date Smoking Tobacco: Never Comments:Never smoker Comments Unknown Sex and Gender Information Value Date Recorded Sex Assigned at Not on file Legal Sex Female 5:09 PM EDT Gender Identity Not on file Sexual Orientation Not on file documented as of this encounter Plan of Treatment Not on file documented as of this encounter Visit Diagnoses Not on filedocumented in this encounter Care Teams Arc Welder Relationship Specialty Start Date End Date Candida Duncan MD [address] [place] [address] PCP - General Pediatrics 03/02/20 11/21/22 documented as of this encounter
== END 2025-03-31 11:25 | disposition home or self-care (01) ==
LOC: HO.HMCC 10:23
PROVIDERS: PCP Internal Medicine; Visit Provider Internal Medicine
DX: F41.9 Anxiety disorder, unspecified (principal); F32.A Depression, unspecified

== ENCOUNTER → 2025-03-31 10:23 | Outpatient (BNVA) | payer OTHER, SELFPAY | PROVIDERS: PCP Internal Medicine; Visit Provider Internal Medicine | DX: F41.9 Anxiety disorder, unspecified (principal); F32.A Depression, unspecified | CPT/HCPCS: 99212 ==

== ENCOUNTER 2025-04-04 12:27 | Outpatient (AMB) | payer OTHER, SELFPAY ==
--- NOTE | 2025-04-04 12:37 | MHC.PC.OV ---
Vital Signs 04/04/25 12:38 Height 5 ft 6 in Weight 223 lb BMI 36.0 BP 126/74 Blood Pressure Location Lt brachial Position Sitting Respiration 18 Pulse 83 Pulse Source Pulse Oximeter Temp 98.3 F Temp Source Oral Pulse Oximetry (%) 97 Oxygen Delivery Method Room Air Intake Visit Reasons: Discussed FMLA Intake Note: Pt is here today for a follow up visit to have papaer work fill out. 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 Pt is looking for a certified alcohol counselor. Pt denies suicidal ideation. [facility] Medical History (Updated 03/31/25 @ 11:33 by Courtney Li MD) Vitamin D deficiency Family History Maternal Uncle Colon cancer Maternal Aunt Breast cancer, Onset Age: 49 Ovarian cancer Mother Breast cancer, Onset Age: 29 Paternal Grandfather Colon cancer Social History Household Members Other:: single. 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 1. Little interest or pleasure in doing things: nearly every day 2. Feeling down, depressed, or hopeless: nearly every day 3. Trouble falling or staying asleep, or sleeping too much: nearly every day 4. Feeling tired or having little energy: nearly every day 5. Poor appetite or overeating: nearly every day 6. Feeling bad about yourself - or that you are a failure or have let yourself or your family down: nearly every day 7. Trouble concentrating on things, such as reading the newspaper or watching television: more than half the days 8. Moving or speaking so slowly that other people could have noticed. Or the opposite - being so fidgety or restless that you have been moving around a lot more than usual: nearly every day 9. Thoughts that you would be better off or of hurting yourself in some way: nearly every day Total score: 26 Depression Screening Interpretation: Positive (pt will start counseling and try Hydroxyzine prn) Depression Screening Follow-up: Existing condition, In treatment and New Medication prescribed Depression Screening Done: Yes 26338 - PHQ-9 Billing: Yes Source: Developed by Drs. Segundo Quinones, Chapis Olea, Lalit Collado and colleagues, with an educational adrianna from [email or web address]. Thrive Questionnaire Date Thrive assessed: 04/04/25 I am a: Patient What is your living situation today?: I have a place to live, but I am worried about losing it in the future Within the past 12 months, did the food you bought not last and you didn't have the money to get more?: Never true Within the past 12 months, did you worry whether your food would run out before you got money to buy more?: Never true Do you have trouble paying for medicines?: No Do you have trouble getting transportation to medical appointments?: No Do you have trouble paying your heating and electricity bill?: No Do you have trouble taking care of your child, family member or friend?: No Do you have trouble with day-to-day activities such as bathing, preparing meals, shopping, managing finances, etc.?: No Are you currently unemployed and looking for a job?: No Are you interested in more education?: No Please select the resources that you would like help with: None Currently or been in a relationship where the following occur: I choose not to answer THRIVE Score: 1 AUDIT C Alcohol Use Questionnaire (AUDIT-C) 1. How often do you have a drink containing alcohol?: Never 3. How often do you have six or more drinks on one occasion?: Never Total Score: 0 CLIFTON-7 AMB Questionnaire CLIFTON-7 Date CLIFTON - 7 assessed: 04/04/25 Feeling nervous, anxious, or on edge: 3 = Nearly every day Not being able to stop or control worryin = Nearly every day Worrying too much about different things: 3 = Nearly every day Trouble relaxin = Nearly every day Being so restless that it is hard to sit still: 3 = Nearly every day Becoming easily annoyed or irritable: 3 = Nearly every day Feeling afraid as if something awful might happen: 3 = Nearly every day Total CLIFTON-7 score (0-4 normal; 5-9 mild; 10-14 moderate; 15-21 severe): 21 Source: Developed by Drs. Segundo Quinones, Chapis Olea, Lalit Collado and colleagues, with an educational adrianna from [email or web address]. CLIFTON-7 Assessment Billing CLIFTON-7 Assessment Tool: CLIFTON-7 Assessment 58934 Physical exam (Primary Care) Vital Signs: Last Vital Signs Temp 98.3 F 04/04/25 12:38 Pulse 83 04/04/25 12:38 Resp 18 04/04/25 12:38 BP 126/74 04/04/25 12:38 Pulse Ox 97 04/04/25 12:38 Oxygen Delivery Method Room Air 04/04/25 12:38 BMI result Body Mass Index 36.0 Tobacco/Smoking Status: Tobacco use Status Tobacco use date assessed 03/31/25 04/04/25 12:42 Patient Tobacco Use Status Never used Tobacco 04/04/25 12:42 e-Cigarette/Vaping Use Never Used 04/04/25 12:42 PHQ-9: PHQ-9 Score PHQ-9: Total score 26 04/04/25 12:47 Depression Screening Interpretation: Positive (pt will start counseling and try Hydroxyzine prn) Depression Screening Follow-up: Existing condition, In treatment and New Medication prescribed Thrive Assessment: Date of Thrive Assessment Date Thrive assessed 04/04/25 04/04/25 12:47 Currently or been in a relationship where the following occur: I choose not to answer Const General: no acute distress HENMT Head: Yes normal to inspection Face and sinus: Yes normal facial exam Eyes General: appearance normal, both eyes and all related structures Resp Effort & Inspection: normal respiratory effort Auscultation: clear to auscultation bilaterally Cardio Rhythm: regular rhythm Heart sounds: S1 normal heart sound present and S2 normal heart sound present GI Inspection: Yes normal to inspection Coding Level of Care Code Est Pt Level 3 (17328) Diagnoses Anxiety and depression F41.9; F32.A Additional Codes CLIFTON-7 Assessment Billing - CLIFTON-7 Assessment Tool: CLIFTON-7 Assessment 03739 ([id number]) PHQ-9 - 84894 - PHQ-9 Billing: Yes ([id number]) Assessment & Plan Assessment & Plan (1) Anxiety and depression: Code(s): F41.9 - Anxiety disorder, unspecified; F32.A - Depression, unspecified Category: Medical Plan: pt will start counseling and will try Hydroxyzine prn Medications: New hydroxyzine HCl 10 mg PO BEDTIME PRN 30 tabs 1RF insomnia
[2025-04-04 12:38] VITALS: BP 126/74; PULSE 83; RESP 18; TEMP 36.8; O2SAT 97; BMI 36.0
--- OUTSIDE RECORDS SUMMARY | 2025-04-04 13:23 | XMS_ITS | Encounter Summary ---
Author Organization [facility] Address [address] [place] [id number] Phone Care Team Providers Care Wood Stock Blank Handler Name Role Phone Candida Duncan MD Primary Care Provider Encounter Details Date Type Department Care Team (Late st Contact Info) Description 05/08/2017 Conversion Encounter [facility] [place] [address] [place] [address] Social History Tobacco Use Types Packs/Day Years [...] on filedocumented in this encounter Care Teams Wood Stock Blank Handler Relationship Specialty Start Date End Date Candida Duncan MD [address] [place] [address] PCP - General Pediatrics 03/02/20 11/21/22 documented as of this encounter
== END 2025-04-04 13:52 | disposition home or self-care (01) ==
LOC: HO.HMCC 12:28
PROVIDERS: PCP Internal Medicine; Visit Provider Internal Medicine
DX: F41.9 Anxiety disorder, unspecified (principal); F32.A Depression, unspecified

== ENCOUNTER → 2025-04-04 12:27 | Outpatient (BNVA) | payer OTHER, SELFPAY | PROVIDERS: PCP Internal Medicine; Visit Provider Internal Medicine | DX: F41.9 Anxiety disorder, unspecified (principal); F32.A Depression, unspecified; Z13.31 Encounter for screening for depression; Z13.39 Encounter for screening examination for other mental health and behavioral disorders | CPT/HCPCS: 96127; 99212 ==

== ENCOUNTER 2025-05-03 18:43 | Emergency (ER) | payer OTHER, SELFPAY ==
[2025-05-03 19:10] VITALS: BP 147/81; PULSE 105; O2SAT 100; BMI 30.4
[2025-05-03 19:17] VITALS: BP 138/78; PULSE 103; RESP 20; TEMP 36.8; O2SAT 95
--- NOTE | 2025-05-03 19:21 | ED.ALCOHOL ---
HPI - Alcohol General Chief Complaint: ETOH/Substance Use Stated Complaint: ETOH Time Seen by Provider: 05/03/25 18:50 Source: patient and EMS Mode of arrival: EMS Limitations: no limitations History of Present Illness ED Provider: Dr. Ashley Marcial HPI narrative: Patient comes in the emergency room complaining of abrasions and ETOH intoxication. According to the patient, she was in a fast food restaurant in the drive-through, patient states that she could not reach the window, opened the door and accidentally stepped on the pedal and she fell out of the car and accidentally drags her for a few feet. Patient states that she did not hit her head or lost consciousness, however patient is complaining of abrasions in all 4 extremities. Patient denies headache or neck pain. Related Data Previous Rx's ?Medication ?Instructions ?Recorded hydroxyzine HCl 10 mg tablet 10 mg PO BEDTIME PRN insomnia #30 04/04/25 tabs bacitracin 500 unit/gram topical 1 appl topical TID #28 grams 05/03/25 ointment Allergies Allergy/AdvReac Type Severity Reaction Status Date / Time No Known Allergies Allergy Verified 05/03/25 19:14 Review of Systems Review of Systems: Constitutional : No Weight loss, No Fever, No Chills, No Night Sweats, No Fatigue, No Malaise ENT/Mouth : No Hearing loss, No Ear Pain, No Nasal Congestion, No Sinus Pain, No Hoarseness, No sore throat, No Rhinorrhea, No Swallowing Difficulty Eyes: No Eye Pain, No Swelling, No Redness, No Foreign Body, No Discharge, No Vision Changes Cardiovascular : No Chest Pain, No SOB, No Dyspnea on Exertion, No Orthopnea, No Edema, No Palpitations Respiratory : No Cough, No Sputum, No Wheezing, No Smoke Exposure, No Dyspnea Gastrointestinal : No Nausea, No Vomiting, No Diarrhea, No Constipation, No abdominal Pain, No Hematochezia, No Melena Genitourinary : no irregular bleeding, No Dysuria, No Urinary Frequency, No Hematuria, No Urinary Incontinence, No Urgency, No Flank Pain, No Urinary Flow Changes, No Hesitancy Musculoskeletal : No joint pain, No Myalgias, No Joint Swelling Skin : No Skin Lesions, complaining of abrasions to upper and lower extremities bilaterally Neuro : No Weakness, No Numbness, No Paresthesias, No Loss of Consciousness, No Dizziness, No Headache Psych : Complaining of anxiety and admits to drinking alcohol Heme/Lymph: No Bruising, No Bleeding,No Lymphadenopathy Endocrine : No Polyuria, No Polydipsia, No Temperature Intolerance [facility] Past Medical History Medical History Vitamin D deficiency Family History Family History Maternal Uncle Colon cancer Maternal Aunt Breast cancer, Onset Age: 49 Ovarian cancer Mother Breast cancer, Onset Age: 29 Paternal Grandfather Colon cancer Social History Social History Household Members Other:: single. 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 Oriented X3. No acute distress. Patient is intoxicated, anxious Eyes: Pupils equal, round and reactive to light. ENT: Pharynx normal. Neck: Normal inspection. Neck supple. No lymph nodes noted. No crepitus CVS: Normal heart rate and rhythm. Pulses normal. Normal S1 and S2 Respiratory: No respiratory distress. Breath sounds normal. No Wheezing. No rales Abdomen: Soft and nontender. No rigidity. No distention. Skin: Skin warm and dry. Normal skin color. Normal skin turgor. Patient has multiple abrasions in upper and lower extremities Extremities: No lower extremity edema. No Lacerations. No Rash Neuro: Oriented X 3. No motor deficit. No sensory deficit. Moving all extremities. No slurred speech. CN 2 through 12 grossly intact Psych: Trying to be cooperative, very anxious Vital Signs: Vital Signs - 24 hr 05/03/25 19:17 Temperature 98.3 F Pulse Rate 103 H Respiratory Rate 20 Blood Pressure 138/78 Pulse Oximetry 95 Oxygen Delivery Method Room Air BMI result Body Mass Index 30.4 Medical Decision Making Medical Decision Making MDM Narrative: Patient came in complaining of superficial skin abrasion and alcohol intoxication. Patient is much more sober at this time, alert and oriented x3, coherent. Patient has no further complaints. Patient states that she only has localized pain. Patient's wounds were cleaned, bacitracin were applied. Patient's significant other is here, is her sober ride home Discharge Plan Discharge Clinical Impression: Abrasion of skin, Alcohol intoxication Patient Disposition: Home, Self-Care Instructions: Alcohol Intoxication (DC), Abrasion (ED) Additional Instructions: Please follow-up with your primary care physician tomorrow. If you have any worsening or new symptoms, please return to the emergency room or call 911 Prescriptions: New bacitracin 500 unit/gram ointment 1 appl topical TID Qty: 28 0RF No Action hydroxyzine HCl 10 mg tablet 10 mg PO BEDTIME PRN (Reason: insomnia) Qty: 30 1RF Print Language: Chadian
--- OUTSIDE RECORDS SUMMARY | 2025-05-03 19:25 | XMS_ITS | Clinical Summary ---
Author Organization [facility] Address [address] [facility] [address] [place] [address] Phone Care Team Providers Care Welder Gas Tungsten Arc Name Role Phone Leigh Carvalho MD Primary Care Provider Allergies No known active allergies Medications No known medications Active Problems No known active problems Encounters Date Type Department Care Team Description 03/09/2025 11:07 AM EDT - 03/09/2025 4:16 PM EDT Emergency [facility] [address] [place] [address] Lamine Mckenzie MD Discharge Disposition: Home or Self Care 03/09/2025 10:10 AM EDT Office Visit [facility] [address] [address] Luis Manuel Em, RODERICK Abdominal pain, epigastric (Primary Dx) from Last 3 Months Social History Tobacco Use Types Packs/Day Years Used Date Smoking Tobacco: Never Assessed Education Answer Date Recorded Are you interested in more education? Not on blanche e 03/09/2025 Are you concerned about learning? Not on file 03/09/2025 No 03/09/2025 No 03/09/2025 Digital Access Answer Date Recorded No 03/09/2025 No 03/09/2025 Reliable internet access at home? Not on file 03/09/2025 Device with a working camera? Not on file Intimate Partner Violence Answer Date R ecorded Are you denied basic needs s uch as food, clothing, or medical care? No 03/09/2025 In the past 12 months have y ou been in a relationship with a person who hurts, threatens, or tries to control you? No 03/09/2025 Are you denied basic needs s uch as food, clothing, or medical care? No 03/09/2025 In the past 12 months have y ou been in a relationship with a person who hurts, threatens, or tries to control you? No 03/09/2025 Comments Unknown Sex and Gender Information Value Date Recorded Sex Assigned at Female 03/09/2025 11:04 AM EDT Legal Sex Female 12:32 PM EDT Gender Identity Female 03/09/2025 11:04 AM EDT Sexual Orientation Don't know 03/10/2025 3: 21 AM EDT Last Filed Vital Signs Vital Sign Reading Time Taken Comments Blood Pressure 134/84 03/09/2025 4:15 PM EDT Pulse 60 03/09/2025 4:15 PM EDT Temperature 36.5 C (97.7 F) 03/09/2025 4:15 PM EDT Respiratory Rate 16 03/09/2025 4:15 PM EDT Oxygen Saturation 99% 03/09/2025 4:15 PM EDT Inhaled Oxygen Concentration - - Weight 100.7 kg (222 lb) 03/09/2025 11:03 AM EDT Height 167.6 cm (5' 6 ) 03/09/2025 11:03 AM EDT Body Mass Index 35.83 03/09/2025 11:03 AM EDT Plan of Treatment Health Maintenance Due Date Last Done Comments DEPRESSION SCREENING 2013 SMOKING Hx and SMOKELESS TOBACCO SCREENING 2014 HEPATITIS A VACCINES (2 of 2 - 2-dose series) 04/26/2016 10/27/2015 HPV VACCINES (1 - 3-dose series) 2016 CHLAMYDIA SCREENING 2017 HEPATITIS C SCREENING 2019 HIV ONE-TIME SCREENING (18-6 5 YEARS) 2019 PAP SMEAR 2022 COVID-19 VACCINE (2023-2 5 season) 2024 01/23/2021, 12/24/2020 Adult Td,Tdap Booster 11/18/2033 11/18/2023 , 03/18/2013 MENINGOCOCCAL VACCINES (ACWY) Completed 03/24/2018 MENINGOCOCCAL VACCINES (B) Completed 07/24, 04/16/2020 HIB VACCINES Aged Out No longer eligi ble based on patient's age to complete this topic PNEUMOCOCCAL VACCINES (0-49 years) Aged Out No longer eligible b ased on patient's age to complete this topic Medical Devices Not on file Procedures Procedure Name Priority Date/Time Associated Diagnosis Comments US ABDOMEN LIMITED RIGHT UPPER QUADRANT Routine 03/09/2025 2:41 PM EDT LIPASE STAT 03/09/2025 11:25 AM EDT LFTS (HEPATIC PANEL) STAT 03/09/2025 11:25 AM EDT HCG, SERUM QUALITATIVE STAT 03/09/2025 11:25 AM EDT BASIC METABOLIC PANEL STAT 03/09/2025 11:25 AM EDT CBC AND DIFFERENTIAL STAT 03/09/2025 11:25 AM EDT URINALYSIS W/REFLEX URINE CULTURE STAT 03/09/2025 11:17 AM EDT POCT URINE HCG Routine 03/09/2025 10:55 AM EDT Abdominal pain, epigastric POCT URINE DIPSTICK Routine 03/09/2025 1 0:51 AM EDT from Last 3 Months Results * US ABDOMEN LIMITED RIGHT UPPER QUADRANT (03/09/2025 2:41 PM EDT) Anatomical Region Laterality Modality Abdomen Ultrasound 03/09/2025 3:33 PM EDT Impressions 03/09/2025 3:46 PM EDT 1. No acute sonographic abnormality of the right upper quadrant. Narrative 03/09/2025 3:46 PM EDT US ABDOMEN LIMITED RIGHT UPPER QUADRANT Referring clinician's provided indication for this examination in Epic: Cholelithiasis TECHNIQUE: US Abdominal limited right upper quadrant. COMPARISON: None FINDINGS: Liver: No focal lesions. Main Portal Vein: Patent with normal direction of flow. Gallbladder: No gallstones or gallbladder wall thickening. Guillen's Sign: Negative. Biliary: Normal. No intrahepatic or extrahepatic biliary ductal dilatation. The common bile duct measures 2 mm. Right Kidney: No stones or hydronephrosis. Procedure Note Paige Newell MD - 03/09/2025 US ABDOMEN LIMITED RIGHT UPPER QUADRANT Referring clinician's provided indication for this examination in Epic:Cholelithiasis TECHNIQUE: US Abdominal limited right upper quadrant. COMPARISON: None FINDINGS: Liver: No focal lesions. Main Portal Vein: Patent with normal direction of flow. Gallbladder: No gallstones or gallbladder wall thickening. Guillen's Sign: Negative. Biliary: Normal. No intrahepatic or extrahepatic biliary ductaldilatation. The common bile duct measures 2 mm. Right Kidney: No stones or hydronephrosis. IMPRESSION: 1. No acute sonographic abnormality of the right upper quadrant. us Tiki Gonzalez PA-C IMG US ABDOMEN Final Resul t * HCG, serum qualitative (03/09/2025 11:25 AM EDT) HCG, QUALITATIVE Negative Negative IU/L [facility] Blood 03/09/2025 11:2 5 AM EDT 03/09/2025 11:28 AM EDT Lamine Mckenzie MD LAB BLOOD ORDERABLES Final Result [address] [address] * LFTs (hepatic panel) (03/09/2025 11:25 AM EDT) ALKALINE PHOSPHATASE 72 39 - 117 U/L [facility] TOTAL BILIRUBIN 0.5 0.0 - 1.2 mg/dL [facility] DIRECT BILIRUBIN 0.2 0.0 - 0.2 mg/dL [facility] Bilirubin (Indirect) 0.3 0 - 1.5 mg/dL [facility] AST 14 0 - 37 U/L [facility] ALT 8 0 - 40 U/L [facility] TOTAL PROTEIN 8.0 6.5 - 8.0 g/dL [facility] ALBUMIN 4.2 3.9 - 4.8 g/dL [facility] GLOBULIN 3.8 1 - 4.8 g/dL [facility] A/G Ratio 1.11 1.00 - 4.80 RATIO [facility] Blood 03/09/2025 11:2 5 AM EDT 03/09/2025 11:28 AM EDT us Lamine Mckenzie MD LAB BLOOD ORDERABLES Final Result Performing Organization Address City/State/[facility] Co de Phone Number [facility] [address] [place] [address] * (ABNORMAL) CBC and differential (03/09/2025 11:25 AM EDT) WBC 7.10 4.00 - 11.00 K/uL [facility] RBC 5.03 4.00 - 5.20 M/uL [facility] HGB 13.4 12.0 - 16.0 g/dL [facility] HCT 41.6 36.0 - 46.0 % [facility] PLT 276 150 - 450 K/uL [facility] MCV 82.7 80.0 - 100.0 fL [facility] MCH 26.6(L) 27.0 - 31.0 pg [facility] MCHC 32.2 32.0 - 36.0 g/dL [facility] RDW 13.7 11.5 - 14.5 % [facility] MPV 10.1 8.4 - 12.0 fL [facility] NRBC 0.00 0.00 /100 WBCs [facility] ABSOLUTE NRBC 0.00 0.00 K/uL [facility] DIFF METHOD Auto [facility] NEUTS 66.8 48.0 - 76.0 % [facility] LYMPHS 23.7 18.0 - 41.0 % [facility] MONOS 8.2 4.0 - 11.0 % [facility] EOS 0.6 0.0 - 5.0 % [facility] BASOS 0.4 0.0 - 1.5 % [facility] Granulocytes, immature (%) 0.3 0.0 - 0.9 % [facility] ABSOLUTE NEUTS 4.75 1.92 - 7.60 K/uL [facility] ABSOLUTE LYMPHS 1.68 0.72 - 4.10 K/uL [facility] ABSOLUTE MONOS 0.58 0.16 - 1.10 K/uL [facility] ABSOLUTE EOS 0.04 0.00 - 0.50 K/uL [facility] ABSOLUTE BASOS 0.03 0.00 - 0.15 K/uL [facility] Granulocytes, immature 0.02 0.00 - 0.09 K/uL [facility] Blood 03/09/2025 11:2 5 AM EDT 03/09/2025 11:28 AM EDT Lamine Mckenzie MD LAB BLOOD ORDERABLES Final Result Performing Organization Address [facility] Co de Phone Number [address] [address] * Lipase (03/09/2025 11:25 AM EDT) LIPASE 27 16 - 63 U/L [facility] Blood 03/09/2025 11:2 5 AM EDT 03/09/2025 11:28 AM EDT Lamine Mckenzie MD LAB BLOOD ORDERABLES Final Result Performing Organization Address [facility] Co de Phone Number [address] [address] * Basic metabolic panel (03/09/2025 11:25 AM EDT) SODIUM 139 133 - 146 mmol/L [facility] CHLORIDE 106 96 - 108 mmol/L [facility] POTASSIUM 4.5 3.3 - 5.1 mmol/L [facility] CO2 23 21 - 35 mmol/L [facility] BUN 9 6 - 19 mg/dL [facility] CREATININE 0.60 0.5 - 1.5 mg/dL [facility] GLUCOSE 92 70 - 99 mg/dL [facility] CALCIUM 9.8 8.4 - 10.3 mg/dL [facility] EGFR >120 >59 mL/min/1.7 3m2 [facility] Comment:Estimated glomerular filtration rate calculated using the CKD-EPI refit equation. ANION GAP 15 10 - 20 mmol/L [facility] Blood 03/09/2025 11:2 5 AM EDT 03/09/2025 11:28 AM EDT Lamine Mckenzie MD LAB BLOOD ORDERABLES Final Result Performing Organization Address City/[facility]/ZIP Co de Phone Number [address] [address] * (ABNORMAL) Urinalysis w/reflex Urine Culture (03/09/2025 11:17 AM EDT) COLOR Yellow Yellow [facility] CLARITY Clear [facility] GLUCOSE Negative Negative [facility] BILI Negative Negative [facility] KETONES Trace(A) Negative [facility] SPECIFIC GRAVITY 1.020 1.005 - 1.030 [facility] BLOOD Negative Negative [facility] PH 6.0 5.0 - 8.0 [facility] Protein-UA Negative Negative [facility] NITRITE Negative Negative [facility] Leukocyte esterase, ur Negative Negative [facility] Urine (Urine) 03/09/2025 11: 17 AM EDT 03/09/2025 11:28 AM EDT Lamine Mckenzie MD URINE ORDERABLES Final Resu lt [address] [address] * Poct Urine HCG (03/09/2025 10:55 AM EDT) HCG, urine Negative, Internal QCs acceptable Negative Other 03/09/2025 10:5 5 AM EDT Luis Manuel Em CNP POINT OF CARE TEST ORD ERABLES Final Result * (ABNORMAL) POCT Urine Dipstick (Automated) (03/09/2025 10:51 AM EDT) [facility] Signature COLOR Yellow [facility] TURBIDITY Clear [facility] GLUCOSE, POCT Negative Negative [facility] KETONE, POCT Negative Negative [facility] OCCULT BLOOD, POCT Negative Negative [facility] SPECIFIC GRAVITY, POCT >1.030 1.001 - 1.030 [facility] ALBUMIN, POCT Negative Negative [facility] Bili Negative Negative [facility] Urobilinogen 1.0(H) <1.0 [facility] NITRITE, POCT Negative Negative [facility] PH, POCT 6.0 5.0 - 8.0 [facility] WBC SCREEN, POCT Negative Negative INDUSTRIAL HYGIENE ENGINEER [facility] 03/09/2025 10:5 1 AM EDT 03/09/2025 10:53 AM EDT Luis Manuel Em CNP POINT OF CARE TEST ORD ERABLES Final Result [facility] [address] [address], [facility] [phone] from Last 3 Months Insurance [employer] [facility] [employer] [place] [address] [place] [address] [employer] Care Teams Welder Gas Tungsten Arc Relationship Specialty Start Date End Date Leigh Carvalho MD [facility] [place] [address] PCP - General Internal Medicine 03/09/25 Additional Source Comments The information contained in this document represents components of the legal health record. It is not the complete legal health record.[facility]
[2025-05-03 21:10] VITALS: BP 134/89; PULSE 77; RESP 16; TEMP 36.7; O2SAT 100
[2025-05-03 21:35] VITALS: BP 134/89; PULSE 77; RESP 16; TEMP 36.7; O2SAT 100
== END 2025-05-03 21:35 | disposition home or self-care (01) ==
PROVIDERS: Emergency Provider Emergency Medicine
DX: S80.812A Abrasion, left lower leg, initial encounter (principal); S80.811A Abrasion, right lower leg, initial encounter; S40.812A Abrasion of left upper arm, initial encounter; S40.811A Abrasion of right upper arm, initial encounter; V03.09XA Pedestrian with other conveyance injured in collision with car, pick-up truck or van in nontraffic accident, initial encounter; Y93.89 Activity, other specified; Y92.511 Restaurant or cafe as the place of occurrence of the external cause; Y99.8 Other external cause status
CPT/HCPCS: 99283; 99284

== ENCOUNTER 2025-06-28 13:25 | Outpatient (REF) | payer SELFPAY ==
[2025-06-29 11:52] LABS: Bacterial Vaginosis PCR POSITIVE (Negative); Candida Group PCR NOT DETECTED (Not Detect); Candida glab krusei PCR NOT DETECTED (Not Detect); Trichomonas vaginalis PCR NOT DETECTED (Not Detect)
== END 2025-06-28 13:26 | disposition home or self-care (01) ==
LOC: HO.LAB 13:25
PROVIDERS: PCP Internal Medicine; Visit Provider Internal Medicine
DX: N76.0 Acute vaginitis (principal); R35.0 Frequency of micturition; F41.9 Anxiety disorder, unspecified; F32.A Depression, unspecified
CPT/HCPCS: 81003; 81515; 87086; 87147; 96127; 99212

== ENCOUNTER 2025-06-28 13:25 | Outpatient (AMB) | payer OTHER, SELFPAY ==
[2025-06-28 13:32] VITALS: BP 120/78; PULSE 91; RESP 19; TEMP 37; O2SAT 97; BMI 34.2
--- NOTE | 2025-06-28 13:32 | A.OFFPC_ITS ---
Vital Signs 06/28/25 13:32 Height 5 ft 8 in Weight 225 lb BMI 34.2 BP 120/78 Blood Pressure Location Lt brachial Position Sitting Respiration 19 Pulse 91 Pulse Source Pulse Oximeter Temp 98.6 F Temp Source Oral Pulse Oximetry (%) 97 Oxygen Delivery Method Room Air Intake Visit Reasons: 6 week follow up/reschedule Intake Note: Pt is here today for 6 weeks follow up visit. Allergies No Known Allergies Allergy (Verified 06/28/25 13:54) Medication List - Last Reconciled 06/28/25 by Courtney Li MD No Known Home Meds Tobacco use date assessed: 06/28/25 Dental Screening Dental Screen Date: 03/31/25 HPI 6 week follow up/reschedule HPI Details Pt c/o vaginal itching and yellow discharge with strong odor and increased urination for 1 week. Patient denies dysuria nausea vomiting abdominal or pelvic pain. Patient has been sexually active with the same partner for few years. [facility] Medical History (Updated 06/28/25 @ 16:01 by Courtney Li MD) Anxiety and depression Cervical cancer screening Vaginitis Vitamin D deficiency Surgical History (Updated 06/28/25 @ 13:57 by Chel Fitzgerald [facility]) No pertinent past surgical history Family History Maternal Uncle Colon cancer Maternal Aunt Breast cancer, Onset Age: 49 Ovarian cancer Mother Breast cancer, Onset Age: 29 Paternal Grandfather Colon cancer Social History Household Members Other:: single. 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 Current occupational exposures/hazards: Yes Cognitive needs: No Hearing needs: No Vision needs: No Female Reproductive History Menstrual Age of Menarche: 13 Questionnaire PHQ-9 Over the last 2 weeks, how often have you been bothered by any of the following problems? 1. Little interest or pleasure in doing things: nearly every day 2. Feeling down, depressed, or hopeless: nearly every day 3. Trouble falling or staying asleep, or sleeping too much: nearly every day 4. Feeling tired or having little energy: nearly every day 5. Poor appetite or overeating: nearly every day 6. Feeling bad about yourself - or that you are a failure or have let yourself or your family down: nearly every day 7. Trouble concentrating on things, such as reading the newspaper or watching television: more than half the days 8. Moving or speaking so slowly that other people could have noticed. Or the opposite - being so fidgety or restless that you have been moving around a lot more than usual: nearly every day 9. Thoughts that you would be better off or of hurting yourself in some way: nearly every day Total score: 26 Depression Screening Interpretation: Positive (pt will start counseling and try Hydroxyzine prn, referred to Psychiatry) Depression Screening Follow-up: Existing condition, In treatment and New Medication prescribed Depression Screening Done: Yes Source: Developed by Drs. Segundo Quinones, Chapis Olea, Lalit Collado and colleagues, with an educational adrianna from [employer]. Thrive Questionnaire Date Thrive assessed: 04/04/25 I am a: Patient What is your living situation today?: I have a place to live, but I am worried about losing it in the future Within the past 12 months, did the food you bought not last and you didn't have the money to get more?: Never true Within the past 12 months, did you worry whether your food would run out before you got money to buy more?: Never true Do you have trouble paying for medicines?: No Do you have trouble getting transportation to medical appointments?: No Do you have trouble paying your heating and electricity bill?: No Do you have trouble taking care of your child, family member or friend?: No Do you have trouble with day-to-day activities such as bathing, preparing meals, shopping, managing finances, etc.?: No Are you currently unemployed and looking for a job?: No Are you interested in more education?: No Please select the resources that you would like help with: None Currently or been in a relationship where the following occur: I choose not to answer THRIVE Score: 1 CLIFTON-7 AMB Questionnaire CLIFTON-7 Date CLIFTON - 7 assessed: 04/04/25 Feeling nervous, anxious, or on edge: 3 = Nearly every day Not being able to stop or control worryin = Nearly every day Worrying too much about different things: 3 = Nearly every day Trouble relaxin = Nearly every day Being so restless that it is hard to sit still: 3 = Nearly every day Becoming easily annoyed or irritable: 3 = Nearly every day Feeling afraid as if something awful might happen: 3 = Nearly every day Total CLIFTON-7 score (0-4 normal; 5-9 mild; 10-14 moderate; 15-21 severe): 21 Source: Developed by Drs. Segundo Quinones, Chapis Olea, Lalit Collado and colleagues, with an educational adrianna from [employer]. Review of Systems Const All systems reviewed & are unremarkable except as noted in HPI and below Eyes Reports no additional complaints ENT Reports no additional complaints Card Reports no additional complaints Resp Reports no additional complaints GI Reports no additional complaints Reports no additional complaints Physical exam (Primary Care) Vital Signs: Last Vital Signs Temp 98.6 F 06/28/25 13:32 Pulse 91 06/28/25 13:32 Resp 19 06/28/25 13:32 BP 120/78 06/28/25 13:32 Pulse Ox 97 06/28/25 13:32 Oxygen Delivery Method Room Air 06/28/25 13:32 BMI result Body Mass Index 34.2 Tobacco/Smoking Status: Tobacco use Status Tobacco use date assessed 06/28/25 06/28/25 13:58 Patient Tobacco Use Status Never used Tobacco 06/28/25 13:32 e-Cigarette/Vaping Use Never Used 06/28/25 13:32 PHQ-9: PHQ-9 Score PHQ-9: Total score 26 06/28/25 14:26 Depression Screening Interpretation: Positive (pt will start counseling and try Hydroxyzine prn, referred to Psychiatry) Depression Screening Follow-up: Existing condition, In treatment and New Medication prescribed Thrive Assessment: Date of Thrive Assessment Date Thrive assessed 04/04/25 06/28/25 13:32 Currently or been in a relationship where the following occur: I choose not to answer Neck Neck: Yes supple Resp Effort & Inspection: normal respiratory effort Auscultation: clear to auscultation bilaterally Cardio Rhythm: regular rhythm Heart sounds: S1 normal heart sound present and S2 normal heart sound present GI Inspection: Yes normal to inspection Palpation (GI): Soft to palpation Percussion: Yes normal to percussion Auscultation: normal bowel sounds Results AMB Urinalysis, Automated UA Leukoctes 0 Nae/uL Last Edit by Chel Fitzgerald Esmer on 06/28/25 14:41 UA Nitrite Negative Last Edit by Chel Fitzgerald [facility] on 06/28/25 14:41 UA Urobilinogen 1 mg/dL Last Edit by Chel Fitzgerald [facility] on 06/28/25 14:41 UA Protein 15 mg/dL Last Edit by Chel Fitzgerald [facility] on 06/28/25 14:41 UA pH 6.0 Last Edit by Chel Fitzgerald [facility] on 06/28/25 14:41 UA Blood 0 Joseph/uL Last Edit by Chel Fitzgerald [facility] on 06/28/25 14:41 UA Specific [place] 1.015 Last Edit by Chel Fitzgerald [facility] on 06/28/25 14 :41 UA Ketone Positive Last Edit by Chel Fitzgerald [facility] on 06/28/25 14:41 UA Bilirubin 1 mg/dL Last Edit by Chel Fitzgerald [facility] on 06/28/25 14:41 UA Glucose 0 mg/dL Last Edit by Chel Fitzgerald [facility] on 06/28/25 14:41 Coding Level of Care Code Est Pt Level 3 (74569) Diagnoses Vaginitis N76.0 Anxiety and depression F41.9; F32.A Assessment & Plan Assessment & Plan (1) Vaginitis: Code(s): N76.0 - Acute vaginitis Category: Medical Plan: Check UA and culture and BV swab (2) Anxiety and depression: Comment: Established with a counselor and referred to Psychiatry, patient declined medications 06/2025 Code(s): F41.9 - Anxiety disorder, unspecified; F32.A - Depression, unspecified Category: Medical Plan: Follow-up with counseling and psychiatry Orders: Orders AMB Urinalysis Automated Today Z13.9 - Encounter for screening, unspecified Bacterial Vaginosis Panel Today N76.0 - Acute vaginitis
--- OUTSIDE RECORDS SUMMARY | 2025-06-28 16:29 | XMS_ITS | Encounter Summary ---
Author Organization [facility] Address [address] [place] [address] Phone Care Team Providers Care Independent Crop Consultant Name Role Phone Candida Duncan MD Primary Care Provider [phone] Encounter Details Date Type Department Care Team (Late st Contact Info) Description 05/08/2017 Conversion Encounter [facility] [place] [address] [place] [address] Social History Tobacco Use Types Packs/Day Years [...] on filedocumented in this encounter Care Teams Independent Crop Consultant Relationship Specialty Start Date End Date Candida Duncan MD [address] [place] [address] PCP - General Pediatrics 03/02/20 11/21/22 documented as of this encounter
--- OUTSIDE RECORDS SUMMARY | 2025-06-28 16:29 | XMS_ITS | Encounter Summary ---
Author Organization [facility] Address [address] [place] [address] Phone Care Team Providers Care Purse Maker Name Role Phone Candida Duncan MD Primary Care Provider [phone] Reason for Visit * Reason Comments Med Refill Encounter Details Date Type Department Care Team (Late st Contact Info) Description 12/22/2018 Refill [facility] [place] [address] [place] [address] Ethel Lyon MD [address] [place] [address] Pain Social History Tobacco Use Types Packs/Day Years Used Date Smoking Tobacco: Never Smokeless Tobacco: Never Comments:Never smoker Alcohol Use Standard Drinks/Week Comments No 0 (1 standard drink = 0.6 oz pur e alcohol) Comments No Sex and Gender Information Value Date Recorded Sex Assigned at Not on file Legal Sex Female 5:09 PM EDT Gender Identity Not on file Sexual Orientation Not on file documented as of this encounter Miscellaneous Notes * Telephone Encounter - Gemma Cartagena NP - 12/23/2018 12:17 PM EDT Agree with triage advice/plan * Telephone Encounter - Geraldine Duff LPN - 12/23/2018 9:39 AM EDT Pharm fax refill request ibuprofen. Per office standing orders, eRx sent. Please sign off. EH documented in this encounter Plan of Treatment Not on file documented as of this encounter Visit Diagnoses Diagnosis Pain Generalized pain documented in this encounter Care Teams Purse Maker Relationship Specialty Start Date End Date Candida Duncan MD [address] [place] [address] PCP - General Pediatrics 03/02/20 11/21/22 documented as of this encounter
--- OUTSIDE RECORDS SUMMARY | 2025-06-28 16:29 | XMS_ITS | Clinical Summary ---
Author Organization [facility] Address [address] [place] [address] Phone Care Team Providers Care Sql Bi Developer Name Role Phone Unavailable Primary Care Provider Unavailabl e Allergies No known active allergies Medications No known medications Active Problems Problem Noted Date Diagnosed Date Family history of breast cancer 01/28/2019 Overview (12/20/2021): Mother at age 31 on 07/28/2013 (Yazmin was 14 years old) due to breast cancer; living with , refusing counselling. ROB needs to try and get records from re her daughter's breast cancer (?BRACA) and: Saw genetics, plans to get BRCA tested. Would consider annual breast MRI, especially if BRCA positive. See genetics notes. May need to discuss further or refer to breast specialist. 07/24/2021 (age 21yr): Pt to make appt with TECHNICAL SUPPORT DIRECTOR, will call to follow up for BRCA testing with genetics. Transfer care to adult PCP. 12/17/2021 (age 21yr): Abnormal mammogram at [facility]. I spoke with Yazmin She agrees to call the [facility] breast center for a more comprehensive evaluation. I do not feel comfortable ordering and interpreting Yazmin's results. 12/20/2021 (age 21yr): Yazmin is continuing care at [facility]. Has appt with a surgeon at the end of December. Assessment & Plan (12/17/2021 1:15 PM EDT): 12/17/2021 (age 21yr): I spoke with Yazmin about her abnormal mammogram at [facility] and need for follow up. She agrees to call the [facility] breast center for a more comprehensive evaluation. I do not feel comfortable ordering and interpreting Yazmin's results. Assessment & Plan (07/24/2021 3:26 PM EDT): 07/24/2021 (age 21yr): Pt to make appt with TECHNICAL SUPPORT DIRECTOR, will call to follow up for BRCA testing with genetics. Transfer care to adult PCP. Assessment & Plan (04/16/2020 11:43 AM EDT): 04/16/2020 (age 19yr): will call tomorrow for appt. Grief 01/14/2017 Overview (04/13/2020): 01/14/2017 Mother at age 31 on 07/28/2013 (Yazmin was 14 years old) due to breast cancer; living with , refusing counselling. 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 Also gaining due to the covid 19 pandemic. Recommend daily exercise. 07/24/2021 (age 21yr): refer to nutrition, needs to start exercising 09/26/2021 (age 21yr): Referral closed, no appointment made. Assessment & Plan (07/24/2021 3:27 PM EDT): 07/24/2021 (age 21yr): refer to nutrition, needs to start exercising Resolved Problems Problem Noted Date Diagnosed Date Resolved Date Other headache syndrome 04/16/202010/2020 Overview (07/24/2021): 04/16/2020 (age 19yr): Noted at [facility]: Regular headaches x a few months, no wake from sleep (sleep helps). Needs OV for THAKKAR, try ibuprofen. Keep THAKKAR diary. 07/24/2021 (age 21yr): Headaches resolved. Assessment & Plan (07/24/2021 3:27 PM EDT): 07/24/2021 (age 21yr): Headaches resolved. Assessment & Plan (04/16/2020 11:38 AM EDT): 04/16/2020 (age 19yr): needs 1/2 hour THAKKAR visit. Immunizations Immunization Administration Dates Next Due DTaP 5 07/30/2005, 3,2001,10/20,2001 H1N1 02/08/2010,09/14/2009 HPV, Quadrivalent 06/28/2014,05/21/2013,03/18/20 13 Hep A, ped/adol 10/27/2015,06/28/2014 Hep B, ped/adol 2001,2001,2001 Hib (HbOC) 10/22/2002 Hib (PRP-T) 2001,2001,2001 IPV 07/30/2005, 2,2001,08/19 Influenza Split 07/12/2011 Influenza, injectable, MDCK, preservative free, quadrivalent 08/03/2019 Influenza, injectable, quadrivalent 10/27/2015 Influenza, injectable, quadr ivalent, preservative free 07/24/2021,09/13/2020,06/30/2018 Influenza, injectable, trivalent 09/14/2009 Influenza, intranasal, quadrivalent 06/28/2014 MMR 07/30/2005,05/31/2002 Meningococcal B Trumenba 07/24/2021,04/16/2020 Meningococcal Conj (Menactra) MCV4P 03/24/2018,0 03/18/2013 PPD Test 02/25/2019,02/18/2019 Pneumococcal Conjugate 2001,2001, Tdap 03/18/2013 Varicella 02/08/2010,05/31/2002 Family History Medical History Relation Name Comments Breast cancer Mother Relation Name Status Comments Cousin Cousin: ADD/ADH D Father Alive Father: ADD/ADH D Half-Brother Alive Half brother (M ): Alive and well Maternal Grandmother Materna l aunt: Diabetes mellitus Mother Mother: Cancer, breast, Other Family history of Obesity Social History Tobacco Use Types Packs/Day Years Used Date Smoking Tobacco: Never Smokeless Tobacco: Never Comments:Never smoker Alcohol Use Standard Drinks/Week Comments No 0 (1 standard drink = 0.6 oz pur e alcohol) Hunger/Food Answer Date Recorded In the last 12 months, did y ou or your family ever eat less than you felt you should because there wasn't enough money for food? No 07/24/2021 Stable Housing Answer Date Recorded Are you worried that in the next 2 months you may not have stable housing? No 07/24/2021 Transportation Concerns Answer Date Rec orded In the last 12 months, have you or your family ever had to go without healthcare because you didn't have a way to get there? No 07/24/2021 Hazards in Home Answer Date Recorded Think about the place you li ve. Do you have problems with any of the following? Pests (mice or roaches), mold, no/not working smoke detectors, water leaks, no window guards. No 2020 Financing Utilities Answer Date Recorde d In the last 12 months, has t he electric, gas, oil, or water company threatened to shut off your services in your home? No 07/24/2021 Safety at Home Answer Date Recorded Are you or your family worried about feeling saf e in your home? No 07/24/2021 Outside Support Answer Date Recorded Do you feel that you need mo re support from other people or programs to help you care for yourself or your family? No 07/24/2021 Understanding Health Concerns Answer Da te Recorded Do you need help understandi ng your or your child's healthcare needs (diagnosis, medications, plan, etc.)? No 07/24/2021 Financing Health Concerns Answer Date R ecorded In the last 12 months, was t here a time when your child needed to see a doctor or get medications or supplies but could not because of cost? No 07/24/2021 Missing School or Work Answer Date Bob rded Did you or your child miss s chool or work because of a health problem that could have been avoided? No 07/24/2021 Comments No Sex and Gender Information Value Date Recorded Sex Assigned at Not on file Legal Sex Female 5:09 PM EDT Gender Identity Not on file Sexual Orientation Not on file Last Filed Vital Signs Vital Sign Reading Time Taken Comments Blood Pressure 120/78 10/23/2021 2:58 PM EST Pulse 98 10/23/2021 2:58 PM EST Temperature 36.6 C (97.8 F) 10/23/2021 2:58 PM EST Respiratory Rate - - Oxygen Saturation - - Inhaled Oxygen Concentration - - Weight 127 kg (280 lb) 10/23/2021 2:58 PM EST Height 166.4 cm (5' 5.5 ) 07/24/2021 10:38 AM ED T Body Mass Index 45.89 07/24/2021 10:38 AM EDT Plan of Treatment Health Maintenance Due Date Last Done Comments DTaP,Tdap,and Td Vaccines (7 - Td or Tdap) 03/18/2023 03/18/2013, 07/30/2005, 10/22/2002, Additional history exists Influenza Vaccines (#1) 2025 07/24/20 21, 09/13/2020, 08/03/2019, Additional history exists COVID-19 Vaccine ( season) 2025 01/23/2021, 12/24/2020 Hepatitis B Vaccines Completed 2001, 2001, 2001 Pneumococcal Vaccine Aged Out 2001, 2001, 2001 No longer eligible based on patient's age to complete this topic HIB Vaccines Completed 10/22/2002, 11/21, 2001, Additional history exists IPV Vaccines Completed 07/30/2005, 05/2002, 2001, Additional history exists MMR Vaccines Completed 07/30/2005, 05/31/2002 Varicella Vaccines Completed 02/08/2010, 05/31/2002 HPV Vaccines Completed 06/28/2014, 04/24, 03/18/2013 Hepatitis A Vaccines Completed 10/27/2015, 06/28/20 14 Meningococcal Vaccine Completed 03/24/2018, 013 Men B Vaccine Completed 07/24/2021, 04/16/2020 Procedures * Due to [facility] law, this organization might not be sharing sensitive test results. Procedure Name Priority Date/Time Associated Diagnosis Comments CHLAMYDIA AND GONORRHEA, AMPLIFIED Routine 07/24/2021 12:01 PM EDT Special screening examination for chlamydial disease from Last 3 Months or Most Recently Relevant to Health Maintenance Results * Due to [facility] law, this organization might not be sharing sensitive test results. * Chlamydia and Gonorrhoea, Amplified (07/24/2021 12:01 PM EDT) Chlamydia Trachomatis, DNA Probe NEGATIVE (NEG) [facility] Comment: No Chlamydia Trachomatis RNA detected in this patient's sample (REFERENCE RANGE/NORMAL VALUE: NOT DETECTED) Note: This test uses group leader- mediated amplification method to detect rRNA from C. Trachomatis URINE GC AMP PROBE NEGATIVE (NEG) [facility] Comment: No Neisseria Gonorrhoeae RNA detected in this patient's sample (REFERENCE RANGE/NORMAL VALUE: NOT DETECTED) NOTE: This test uses group leader-mediated amplification method to detect rRNA from N.Gonorrhoeae. A negative result does not preclude infection. In the case of a negative urine result, testing of an endocervical(female) or urethral (male) specimen is recommended if there is high clinical suspicion of infection. Due to very high sensitivity of Nucleic Acid Amplification Test, false positive results may occur. Therefore, specimen handling is extremely important. In patients in whom the disease is unlikely, additional sample for testing should be considered after an initial positive result. The performance characteristics of this test have not been evaluated in children. The Aptima Combo2 assay is not intended for the evaluation of suspected sexual abuse or for other medico-legal indications. The ordering provider should assess if the patient had consensual sex without risk of sexual abuse. Consult the [facility] if needed. Contact phone number . Therapeutic failure or success cannot be determined with the Aptima Combo2 assay since nucleic acid may persist following appropriate antimicrobial therapy. The Centers for Disease Control and Prevention (CDC) recommends confirmatory retesting using culture or a different nucleic acid amplification test when positive results occur, if indicated. Testing performed or reported by [facility], a Service of [facility], [address], [place] [address] David Chavez MD, Pad Tufter CLIA# [id number] Urine 07/24/2021 12:0 1 PM EDT 07/24/2021 11:08 PM EDT Candida Duncan MD LAB MICROBIOLOGY - GENERAL OR DERABLES Final Result [facility] from Last 3 Months or Most Recently Relevant to Health Maintenance
--- OUTSIDE RECORDS SUMMARY | 2025-06-28 16:29 | XMS_ITS | Encounter Summary ---
Author Organization [facility] Address [address] [place] [address] Phone Care Team Providers Care Tow Feeder Name Role Phone Candida Dunacn MD Primary Care Provider [phone] Encounter Details Date Type Department Care Team (Late st Contact Info) Description 01/14/2017 Documentation [facility] [place] [address] [place], [place] [id number] Family Medicine, Physician [address] [place] [address] Social History Tobacco Use Types Packs/Day Years [...] on filedocumented in this encounter Care Teams Tow Feeder Relationship Specialty Start Date End Date Candida Duncan MD [address] [place] [address] PCP - General Pediatrics 03/02/20 11/21/22 documented as of this encounter
--- OUTSIDE RECORDS SUMMARY | 2025-06-28 16:29 | XMS_ITS | Encounter Summary ---
Author Organization [facility] Address [address] [place] [address] Phone Care Team Providers Care Air Tester Name Role Phone Candida Duncan MD Primary Care Provider [phone] Encounter Details Date Type Department Care Team (Late st Contact Info) Description 07/15/2011 Documentation [facility] [place] Family Medicine [address] [place], [place] [phone] Family Medicine, Physician [address] [place] [address] Social History Tobacco Use Types Packs/Day Years Used Date Smoking Tobacco: Never Assessed Comments Unknown Sex and Gender Information Value Date Recorded Sex Assigned at Not on file Legal Sex Female 5:09 PM EDT Gender Identity Not on file Sexual Orientation Not on file documented as of this encounter Plan of Treatment Not on file documented as of this encounter Visit Diagnoses Not on filedocumented in this encounter Care Teams Air Tester Relationship Specialty Start Date End Date Candida Duncan MD [address] [place] [address] PCP - General Pediatrics 03/02/20 11/21/22 documented as of this encounter
--- OUTSIDE RECORDS SUMMARY | 2025-06-28 16:29 | XMS_ITS | Encounter Summary ---
Author Organization [facility] Address [address] [place] [address] Phone Care Team Providers Care Agribusiness Internship Name Role Phone Candida Duncan MD Primary Care Provider [phone] Encounter Details Date Type Department Care Team (Late st Contact Info) Description 07/28/2013 Documentation [facility] [place] Family Medicine [address] [place], [place] [id number] Family Medicine, Physician [address] [place] [address] Social History Tobacco Use Types Packs/Day Years [...] on filedocumented in this encounter Care Teams Agribusiness Internship Relationship Specialty Start Date End Date Candida Duncan MD [address] [place] [address] PCP - General Pediatrics 03/02/20 11/21/22 documented as of this encounter
--- OUTSIDE RECORDS SUMMARY | 2025-06-28 16:29 | XMS_ITS | Encounter Summary ---
Author Organization [facility] Address [address] [place] [address] Phone Care Team Providers Care Dentistry Professor Name Role Phone Candida Duncan MD Primary Care Provider [phone] Encounter Details Date Type Department Care Team (Late st Contact Info) Description 10/30/2015 Documentation [facility] [place] [address] [place], [place] [phone] Family Medicine, Physician [address] [place] [address] Social History Tobacco Use Types Packs/Day Years [...] on filedocumented in this encounter Care Teams Dentistry Professor Relationship Specialty Start Date End Date Candida Duncan MD [address] [place] [address] PCP - General Pediatrics 03/02/20 11/21/22 documented as of this encounter
--- OUTSIDE RECORDS SUMMARY | 2025-06-28 16:29 | XMS_ITS | Encounter Summary ---
Author Organization [facility] Address [address] [place] [address] Phone Care Team Providers Care Drawing Tracer Name Role Phone Candida Duncan MD Primary Care Provider [phone] Encounter Details Date Type Department Care Team (Late st Contact Info) Description 06/29/2014 Documentation [facility] [place] Family Medicine [address] [place], [place] [phone] Family Medicine, Physician [address] [place] [address] Social History Tobacco Use Types Packs/Day Years [...] on filedocumented in this encounter Care Teams Drawing Tracer Relationship Specialty Start Date End Date Candida Duncan MD [address] [place] [address] PCP - General Pediatrics 03/02/20 11/21/22 documented as of this encounter
--- OUTSIDE RECORDS SUMMARY | 2025-06-28 16:29 | XMS_ITS | Encounter Summary ---
Author Organization [facility] Address [address] [place] [address] Phone Care Team Providers Care Engine Maintenance Mechanic Name Role Phone Candida Duncan MD Primary Care Provider [phone] Encounter Details Date Type Department Care Team (Late st Contact Info) Description 05/25/2013 Documentation [facility] [place] Family Medicine [address] [place], [place] [phone] Family Medicine, Physician [address] [place] [address] Social History Tobacco Use Types Packs/Day Years [...] on filedocumented in this encounter Care Teams Engine Maintenance Mechanic Relationship Specialty Start Date End Date Candida Duncan MD [address] [place] [address] PCP - General Pediatrics 03/02/20 11/21/22 documented as of this encounter
--- OUTSIDE RECORDS SUMMARY | 2025-06-28 16:29 | XMS_ITS | Encounter Summary ---
Author Organization [facility] Address [address] [place] [address] Phone Care Team Providers Care Drapery Examiner Name Role Phone Candida Duncan MD Primary Care Provider [phone] Encounter Details Date Type Department Care Team (Late st Contact Info) Description 10/30/2015 Documentation [facility] [place] [address] [place], [place] [phone] Family Medicine, Physician [address] [place] [address] Social History Tobacco Use Types Packs/Day Years [...] on filedocumented in this encounter Care Teams Drapery Examiner Relationship Specialty Start Date End Date Candida Duncan MD [address] [place] [address] PCP - General Pediatrics 03/02/20 11/21/22 documented as of this encounter
--- OUTSIDE RECORDS SUMMARY | 2025-06-28 16:29 | XMS_ITS | Encounter Summary ---
Author Organization [facility] Address [address] [place] [address] Phone Care Team Providers Care Professor Of Religion Name Role Phone Candida Duncan MD Primary Care Provider [phone] Encounter Details Date Type Department Care Team (Late st Contact Info) Description 08/31/2014 Documentation [facility] [place] [address] [place], [place] [phone] Family Medicine, Physician [address] [place] [address] Social History Tobacco Use Types Packs/Day Years [...] on filedocumented in this encounter Care Teams Professor Of Religion Relationship Specialty Start Date End Date Candida Duncan MD [address] [place] [address] PCP - General Pediatrics 03/02/20 11/21/22 documented as of this encounter
--- OUTSIDE RECORDS SUMMARY | 2025-06-28 16:29 | XMS_ITS | Encounter Summary ---
Author Organization [facility] Address [address] [place] [address] Phone Care Team Providers Care Buggy Driver Name Role Phone Candida Duncan MD Primary Care Provider [phone] Encounter Details Date Type Department Care Team (Late st Contact Info) Description 01/09/2011 Documentation [facility] [place] Family Medicine [address] [place], [place] [phone] Family Medicine, Physician [address] [place] [address] Social History Tobacco Use Types Packs/Day Years [...] on filedocumented in this encounter Care Teams Buggy Driver Relationship Specialty Start Date End Date Candida Duncan MD [address] [place] [address] PCP - General Pediatrics 03/02/20 11/21/22 documented as of this encounter
--- OUTSIDE RECORDS SUMMARY | 2025-06-28 16:29 | XMS_ITS | Encounter Summary ---
Author Organization [facility] Address [address] [place] [address] Phone Care Team Providers Care Buhr Mill Operator Name Role Phone Candida Duncan MD Primary Care Provider [phone] Encounter Details Date Type Department Care Team (Late st Contact Info) Description 05/26/2013 Documentation [facility] [place] Family Medicine [address] [place], [place] [phone] Family Medicine, Physician [address] [place] [address] Social History Tobacco Use Types Packs/Day Years [...] on filedocumented in this encounter Care Teams Buhr Mill Operator Relationship Specialty Start Date End Date Candida Duncan MD [address] [place] [address] PCP - General Pediatrics 03/02/20 11/21/22 documented as of this encounter
--- OUTSIDE RECORDS SUMMARY | 2025-06-28 16:29 | XMS_ITS | Encounter Summary ---
Author Organization [facility] Address [address] [place] [address] Phone Care Team Providers Care Social Work Supervisor Name Role Phone Candida Duncan MD Primary Care Provider [phone] Encounter Details Date Type Department Care Team (Late st Contact Info) Description 03/19/2013 Documentation [facility] [place] [address] [place], [place] [phone] Family Medicine, Physician [address] [place] [address] Social History Tobacco Use Types Packs/Day Years [...] on filedocumented in this encounter Care Teams Social Work Supervisor Relationship Specialty Start Date End Date Candida Duncan MD [address] [place] [address] PCP - General Pediatrics 03/02/20 11/21/22 documented as of this encounter
--- OUTSIDE RECORDS SUMMARY | 2025-06-28 16:29 | XMS_ITS | Encounter Summary ---
Author Organization [facility] Address [address] [place] [address] Phone Care Team Providers Care Sports Medicine Coordinator Name Role Phone Candida Duncan MD Primary Care Provider Reason for Visit * Reason Comments Med Refill Encounter Details Date Type Department Care Team (Late st Contact Info) Description 10/09/2018 Refill [facility] [place] [address] [place] [address] Ethel Lyon MD [address] [place] [address] Pain Social History Tobacco Use Types Packs/Day [...] Telephone Encounter - Gemma Cartagena NP - 10/09/2018 6:14 PM EST Agree with triage advice/plan documented in this encounter Plan of Treatment Not on file documented as of this encounter Visit Diagnoses Diagnosis Pain Generalized pain documented in this encounter Care Teams Sports Medicine Coordinator Relationship Specialty Start Date End Date Candida Duncan MD [address] [place] [address] PCP - General Pediatrics 03/02/20 11/21/22 documented as of this encounter
--- OUTSIDE RECORDS SUMMARY | 2025-06-28 16:29 | XMS_ITS | Encounter Summary ---
Author Organization [facility] Address [address] [place] [address] Phone Care Team Providers Care Substation Electrician Name Role Phone Candida Duncan MD Primary Care Provider [phone] Encounter Details Date Type Department Care Team (Late st Contact Info) Description 06/29/2014 Documentation [facility] [place] Family Medicine [address] [place], [place] [phone] Family Medicine, Physician [address] [place] [address] Social History Tobacco Use Types Packs/Day Years [...] on filedocumented in this encounter Care Teams Substation Electrician Relationship Specialty Start Date End Date Candida Duncan MD [address] [place] [address] PCP - General Pediatrics 03/02/20 11/21/22 documented as of this encounter
--- OUTSIDE RECORDS SUMMARY | 2025-06-28 16:29 | XMS_ITS | Clinical Summary ---
Author Organization [facility] Address [address] [place] [address] Phone Care Team Providers Care Scheduling Coordinator Name Role Phone Leigh Carvalho MD Primary Care Provider Allergies No known active allergies Medications No known medications Active Problems No known active problems Social History Tobacco Use Types Packs/Day Years [...] HEPATITIS C SCREENING 2019 HIV ONE-TIME SCREENING (18-65 YEARS) 2019 PAP SMEAR 2022 INFLUENZA VACCINE (#1) 2025 4, 07/24/2021, 09/13/2020, Additional history exists COVID-19 VACCINE ( season) 2025 01/23/2021, 12/24/2020 Adult Td,Tdap Booster 11/18/2033 11/18/2023, 013 MENINGOCOCCAL VACCINES (ACWY) Completed 03/24/2018 MENINGOCOCCAL VACCINES (B) Completed 07/24/2021, HIB VACCINES Aged Out No longer eligi ble based on patient's age to complete this topic PNEUMOCOCCAL VACCINES (0-49 years) Aged Out No longer eligible based on patient's age to complete this topic Medical Devices Not on file Insurance [facility] [employer] DIRECT Care Teams Scheduling Coordinator Relationship Specialty Start Date End Date Leigh Carvalho MD [address] [place] [address] PCP - General Internal Medicine 03/09/25 Additional Source Comments The information contained in this document represents components of the legal health record. It is not the complete legal health record.[facility]
--- OUTSIDE RECORDS SUMMARY | 2025-06-28 16:29 | XMS_ITS | Encounter Summary ---
Author Organization [facility] Address [address] [place] [phone] Phone Care Team Providers Care Cosmetics Counter Manager Name Role Phone Candida Duncan MD Primary Care Provider [phone] Encounter Details Date Type Department Care Team (Late st Contact Info) Description 03/02/2012 Documentation [facility] [place] Family Medicine [address] [place] [address] Family Medicine, Physician [address] [place] [address] Social History Tobacco Use Types Packs/Day Years [...] on filedocumented in this encounter Care Teams Cosmetics Counter Manager Relationship Specialty Start Date End Date Candida Duncan MD [address] [place] [address] PCP - General Pediatrics 03/02/20 11/21/22 documented as of this encounter
--- OUTSIDE RECORDS SUMMARY | 2025-06-28 16:29 | XMS_ITS | Encounter Summary ---
Author Organization [facility] Address [address] [place] [address] Phone Care Team Providers Care Solar Fabrication Technician Name Role Phone Candida Duncan MD Primary Care Provider [phone] Encounter Details Date Type Department Care Team (Late st Contact Info) Description 08/31/2014 Documentation [facility] [place] [address] [place], [place] [id number] Family Medicine, Physician [address] [place] [address] Social History Tobacco Use Types Packs/Day Years [...] on filedocumented in this encounter Care Teams Solar Fabrication Technician Relationship Specialty Start Date End Date Candida Duncan MD [address] [place] [address] PCP - General Pediatrics 03/02/20 11/21/22 documented as of this encounter
--- OUTSIDE RECORDS SUMMARY | 2025-06-28 16:29 | XMS_ITS | Encounter Summary ---
Author Organization [facility] Address [address] [place] [address] Phone Care Team Providers Care Statistical Assistant Name Role Phone Candida Duncan MD Primary Care Provider [phone] Encounter Details Date Type Department Care Team (Late st Contact Info) Description 03/19/2013 Documentation [facility] [place] Family Medicine [address] [place], [place] [id number] Family Medicine, Physician [address] [place] [address] Social History Tobacco Use Types Packs/Day Years [...] on filedocumented in this encounter Care Teams Statistical Assistant Relationship Specialty Start Date End Date Candida Duncan MD [address] [place] [address] PCP - General Pediatrics 03/02/20 11/21/22 documented as of this encounter
--- OUTSIDE RECORDS SUMMARY | 2025-06-28 16:29 | XMS_ITS | Encounter Summary ---
Author Organization [facility] Address [address] [place] [address] Phone Care Team Providers Care Print Color Matcher Name Role Phone Candida Duncan MD Primary Care Provider [phone] Encounter Details Date Type Department Care Team (Late st Contact Info) Description 03/02/2012 Documentation [facility] [place] Family Medicine [address] [place] [address] Family Medicine, Physician [address] [place] [address] Social History Tobacco Use Types Packs/Day Years [...] on filedocumented in this encounter Care Teams Print Color Matcher Relationship Specialty Start Date End Date Candida Duncan MD [address] [place] [address] PCP - General Pediatrics 03/02/20 11/21/22 documented as of this encounter
--- OUTSIDE RECORDS SUMMARY | 2025-06-28 16:29 | XMS_ITS | Encounter Summary ---
Author Organization [facility] Address [address] [place] [address] Phone Care Team Providers Care Athletic Equipment Manager Name Role Phone Candida Duncan MD Primary Care Provider [phone] Encounter Details Date Type Department Care Team (Late st Contact Info) Description 08/11/2014 Documentation [facility] Family Medicine [address] [place], [place] [id number] Family Medicine, Physician [address] [place] [address] Social History Tobacco Use Types Packs/Day Years [...] on filedocumented in this encounter Care Teams Athletic Equipment Manager Relationship Specialty Start Date End Date Candida Duncan MD [address] [place] [address] PCP - General Pediatrics 03/02/20 11/21/22 documented as of this encounter
--- OUTSIDE RECORDS SUMMARY | 2025-06-28 16:29 | XMS_ITS | Encounter Summary ---
Author Organization [facility] Address [address] [place] [address] Phone Care Team Providers Care An/Syq 13 Nav/C2 Operator Name Role Phone Candida Duncan MD Primary Care Provider [phone] Encounter Details Date Type Department Care Team (Late st Contact Info) Description 10/30/2015 Documentation [facility] [place] Family Medicine [address] [place], [place] [id number] Family Medicine, Physician [address] [place] [address] Social History Tobacco Use Types Packs/Day Years [...] on filedocumented in this encounter Care Teams An/Syq 13 Nav/C2 Operator Relationship Specialty Start Date End Date Candida Duncan MD [address] [place] [address] PCP - General Pediatrics 03/02/20 11/21/22 documented as of this encounter
--- OUTSIDE RECORDS SUMMARY | 2025-06-28 16:29 | XMS_ITS | Encounter Summary ---
Author Organization [facility] Address [address] [place] [address] Phone Care Team Providers Care White Sugar Supervisor Name Role Phone Candida Duncan MD Primary Care Provider [phone] Encounter Details Date Type Department Care Team (Late st Contact Info) Description 01/14/2017 Documentation [facility] [place] Family Medicine [address] [place], [place] [id number] Family Medicine, Physician [address] [place] [address] Social History Tobacco Use Types Packs/Day Years [...] on filedocumented in this encounter Care Teams White Sugar Supervisor Relationship Specialty Start Date End Date Candida Duncan MD [address] [place] [address] PCP - General Pediatrics 03/02/20 11/21/22 documented as of this encounter
--- OUTSIDE RECORDS SUMMARY | 2025-06-28 16:29 | XMS_ITS | Encounter Summary ---
Author Organization [facility] Address [address] [place] [address] Phone Care Team Providers Care Finance Controller Name Role Phone Candida Duncan MD Primary Care Provider [phone] Encounter Details Date Type Department Care Team (Late st Contact Info) Description 07/15/2011 Documentation [facility] [place] Family Medicine [address] [place], [place] [phone] Family Medicine, Physician [address] [place] [address] Social History Tobacco Use Types Packs/Day Years [...] on filedocumented in this encounter Care Teams Finance Controller Relationship Specialty Start Date End Date Candida Duncan MD [address] [place] [address] PCP - General Pediatrics 03/02/20 11/21/22 documented as of this encounter
== END 2025-06-28 16:01 | disposition home or self-care (01) ==
PROVIDERS: PCP Internal Medicine; Visit Provider Internal Medicine
DX: N76.0 Acute vaginitis (principal); F41.9 Anxiety disorder, unspecified; F32.A Depression, unspecified; Z13.9 Encounter for screening, unspecified